=== PATIENT | female | born 1965 | race Hispanic/Latino ===

== ENCOUNTER 2024-12-10 18:26 | Inpatient (IN) | payer MEDICAID ==
[~2024-12-10] VITALS: Ht 170.2 cm; Wt 120.0 kg
[2024-12-10] MEDS: ZOSYN 3.375GM +NS 50ML IVPB SCH (06:00)
--- NOTE | 2024-12-10 20:20 | ERN ---
ED Note History of Present Illness Stated Complaint: SWOLLEN RIGHT FOOT Chief Complaint: FOOT INJURY/PAIN Time Seen by MD: 18:31 Time Seen by Midlevel: 18:31 Dictation: The patient is a 59-year-old female with a history of diabetes, hypertension, hyperlipidemia who presents to the emergency department with right foot swelling and redness onset Monday. Patient reports she was seen at [facility] on on Monday for UTI and was placed on Macrobid and then she was seen again on Monday four the foot and was diagnosed with Bactrim but reports redness and swelling is getting worse and is now going up her leg. Patient denies any fevers. Denies any injury to foot or any open wounds. Allergies: Coded Allergies: No Known Drug Allergies (Unverified Allergy, Unknown, 12/10/24) Past Medical History Past Medical History: Anxiety, Diabetes-Type II, GERD, High Cholesterol, Hypertension, Seizure Surgical History: Hysterectomy, Other Surgical History Other: TUBAL RN Note Reviewed/Agreed w/PFSH: Yes Review of System Dictation Constitutional: Negative for fever,chills, and weight loss Eyes: Negative for injury, pain,redness, and discharge ENT: Negative for injury,pain or swelling Cardiovascular: Negative for chest pain, palpitations, and edema Respiratory: Negative for shortness of breath, cough, and wheezing, Abdomen/GI: Negative for abdominal pain, nausea, vomiting, diarrhea, and constipation Back: Negative for injury and pain : Negative for injury, bleeding and discharge MS/Extremity: Negative for injury and deformity Skin: Negative for rash, and discoloration positive for redness and swelling to right foot Neuro: Negative for headache, weakness, numbness, tingling, and seizure Psych: Negative for suicide ideation, homicidal ideation, and hallucinations Initial Vital Sign VS Vital Signs Date Time Temp Pulse Resp B/P (MAP) Pulse Ox O2 Delivery O2 Flow Rate FiO2 12/10/24 18:54 99.7 94 20 151/81 96 Room Air 0 Physical Exam Dictation Vital Signs reviewed General Appearance: Alert, oriented x 3, no acute distress, well developed, nourished. Head and Face: non-traumatic. Eyes: PERRL, pink conjunctivas, eyelid no trauma, anterior chamber with arcus senilis. Ears: Pinnas intact and no signs of trauma or erythema ear canals clear and no discharge TM no erythema Nose: No discharge, no bleeding. Oropharynx: Mouth normal, tongue pink. pharynx clear,no erythema, tonsils no exudates, no abscesses noted, mucous membrane moist Neck: Supple, non-tender, no thyromegaly, no masses, no JVD, no bruits Breast:Deferred Chest:No tenderness, no crepitus, no paradoxical movement, no retractions Lungs:Clear, well-ventilated, symmetric, no rales, no wheezing, no rhonchi, no stridor, good breath sounds bilaterally Heart: Regular rate, regular rhythm, no murmur, no gallops Vascular: 2+ peripheral edema to right lower leg Abdomen: Soft, positive bowel sounds, nondistended, no guarding, nontender, no rebound, no masses no hepatomegaly, no splenomegaly, no Caballero's sign, no hernias. Rectal: Deferred Genital: Deferred Neurological: Normal speech, motor function intact, sensory function intact Musculoskeletal: Neck nontender, full range of motion, back nontender, full range of motion, Extremities: nontender, full range of motion , erythema and warmth noted to right foot, swelling, refused erythema noted to right upper leg Skin: Color pink, dry, no turgor, no rash, no lacerations, no abrasions, no contusions. Lymphatic: Deferred Results (Laboratory/Radiology) Laboratory/Radiology Laboratory Tests Test 12/10/24 21:01 White Blood Count 8.5 K/uL (4.8-10.8) Red Blood Count 4.12 MIL/uL (4.00-5.50) Hemoglobin 12.5 g/dL (12.0-16.0) Hematocrit 37.2 % (36-48) Mean Corpuscular Volume 90.3 fL (79-99) Mean Corpuscular Hemoglobin 30.3 pg (27.0-33.0) Mean Corpuscular Hemoglobin Concent 33.6 g/dL (32.0-36.0) Red Cell Distribution Width 12.6 % (11.0-15.5) Platelet Count 145 K/uL (130-400) Mean Platelet Volume 10.8 fL (7.5-10.5) H Immature Granulocyte % (Auto) 0.2 % (0-1) Neutrophils (%) (Auto) 66.9 % (40.0-77.0) Lymphocytes (%) (Auto) 24.6 % (21.0-51.0) Monocytes (%) (Auto) 7.1 % (3.0-13.0) Eosinophils (%) (Auto) 1.1 % (0.0-8.0) Basophils (%) (Auto) 0.1 % (0.0-5.0) Neutrophils # (Auto) 5.7 K/uL (1.8-7.7) Lymphocytes # (Auto) 2.1 K/uL (1.0-4.8) Monocytes # (Auto) 0.6 K/uL (0.1-1.0) Eosinophils # (Auto) 0.09 K/uL (0.00-0.70) Basophils # (Auto) 0.01 K/uL (0.00-0.20) Absolute Immature Granulocyte (auto 0.02 K/uL (0-1) Nucleated Red Blood Cells 0.0 % (0.0-0.19) Sodium Level 137 mmol/L (136-145) Potassium Level 3.8 mmol/L (3.5-5.1) Chloride Level 102 mmol/L (101-111) Carbon Dioxide Level 31 mmol/L (21-32) Blood Urea Nitrogen 8 mg/dL (7-18) Creatinine 0.7 mg/dL (0.5-1.0) Glomerular Filtration Rate Calc 100 mL/min (>90) Random Glucose 106 mg/dL (70-105) H Lactic Acid Level 1.1 mmol/L (0.8-2.5) Total Calcium 9.2 mg/dL (8.5-10.1) REASON: cellulitis ORDERING PHYSICIAN: RAKESH MCNEIL PROCEDURE: FT 3VW RT - FOOT COMP 3+VWS RT FOOT COMP 3+VWS RT CLINICAL HISTORY: cellulitis COMPARISON: None TECHNIQUE: AP lateral and oblique images were obtained. FINDINGS: No obvious fracture or dislocation. No joint effusion. The soft tissues appear edematous. No radiopaque foreign bodies. IMPRESSION: Soft tissue edema. Labs Reviewed?: Yes ED Course ED Course Orders Procedure Category Date Status Time Cbc With Differential LAB 12/10/24 Complete 19:05 Lactic Acid LAB 12/10/24 Complete 19:05 Basic Metabolic Panel LAB 12/10/24 Complete 19:05 Foot Comp 3+Vws Rt RAD 12/10/24 Resulted 19:05 Zosyn 3.375gm+Ns 50ml PHA 12/10/24 Complete (Zosyn 3.375gm+Ns 21:08 Vancomycin 1g/250ml PHA 12/10/24 In Process Kit (Vancomycin 1g/2 21:30 Current Medications Medications (Trade) Dose Ordered Sig/Eliel Route PRN Reason Start Time Stop Time Status Last Admin Dose Admin Piperacillin Sod/ Tazobactam Sod 50 ml @ 200 mls/hr STAT STAT IVPB 12/10/24 21:08 12/10/24 21:22 DC 12/10/24 21:49 Vancomycin HCl 250 ml @ 125 mls/hr ONCE ONCE IV 12/10/24 21:30 12/10/24 23:29 Vital Signs Date Time Temp Pulse Resp B/P (MAP) Pulse Ox O2 Delivery O2 Flow Rate FiO2 12/10/24 18:54 99.7 94 20 151/81 96 Room Air 0 Medical Decision Making MDM MDM: The patient is a 59-year-old female with a history of diabetes, hypertension, hyperlipidemia who presents to the emergency department with right foot swelling and redness onset Monday. Patient reports she was seen at [facility] on on Monday for UTI and was placed on Macrobid and then she was seen again on Monday four the foot and was diagnosed with Bactrim but reports redness and swelling is getting worse and is now going up her leg. Patient denies any fevers. Denies any injury to foot or any open wounds. CBC showed no leukocytosis, no anemia, chemistry showed no electrolyte imbalance, normal renal function, chest x-ray revealed soft tissue edema. Patient with worsening cellulitis now going up her right leg despite on being oral antibiotics. We will admit for further treatment. Differential diagnosis: Sepsis, cellulitis, osteomyelitis, Comorbidities: Diabetes, hypertension, hyperlipidemia, seizures Tests considered and not ordered secondary to shared decision making include: none Previous outside records reviewed: none Risk of complication and/or morbidity or mortality of patient management: The patient meets criteria for admission. Need for emergency major/minor surgery: No There are no social concerns with this patient. I independently interpreted the tests I ordered (labs, urinalysis, etc.). I discussed the case with the hospitalist for admission. conner STANLEY I discussed the case with the following specialists: none. Historian: pateint. I independently interpreted imaging studies and EKGs that I ordered (US, CT, XR, EKG, etc.). External chart review: none. Medical management and examination interpretation discussions were had by me with other qualified healthcare professionals as indicated for the patient's care. DX & DISP Disposition: Inpatient Decision to Admit Date: Dec 10, 2024 Decision to Admit Time: 21:52 Departure Impression: Primary Impression: Cellulitis of right foot Additional Impression: Cellulitis of right lower leg Condition: Stable Referrals: NOHEMY BAL MD (PCP) I have reviewed the case, and I agree with, Diagnosis and Plan RAKESH MCNEIL PROFESSOR OF BIOSTATISTICS Dec 10, 2024 20:20
--- NOTE | 2024-12-10 20:33 | HMCIMG ---
FOOT COMP 3+VWS RT CLINICAL HISTORY: cellulitis COMPARISON: None TECHNIQUE: AP lateral and oblique images were obtained. FINDINGS: No obvious fracture or dislocation. No joint effusion. The soft tissues appear edematous. No radiopaque foreign bodies. IMPRESSION: Soft tissue edema.
[2024-12-10 21:07] LABS: BASOPHILS # (AUTO) 0.01 K/uL (0.00-0.20); BASOPHILS % (AUTO) 0.1 % (0.0-5.0); EOSINOPHILS # (AUTO) 0.09 K/uL (0.00-0.70); EOSINOPHILS % (AUTO) 1.1 % (0.0-8.0); HEMATOCRIT 37.2 % (36-48); IMMATURE GRANULOCYTE ABSOLUTE 0.02 K/uL (0-1); LYMPHOCYTES # (AUTO) 2.1 K/uL (1.0-4.8); LYMPHOCYTES % (AUTO) 24.6 % (21.0-51.0); MEAN CORPUSCULAR HEMOGLOBIN 30.3 pg (27.0-33.0); MEAN CORPUSCULAR HGB CONC 33.6 g/dL (32.0-36.0); MEAN CORPUSCULAR VOLUME 90.3 fL (79-99); MONOCYTES # (AUTO) 0.6 K/uL (0.1-1.0); MONOCYTES % (AUTO) 7.1 % (3.0-13.0); NEUTROPHILS # (AUTO) 5.7 K/uL (1.8-7.7); NEUTROPHILS % (AUTO) 66.9 % (40.0-77.0); PLATELET COUNT (AUTO) 145 K/uL (130-400); RED BLOOD CELL COUNT(AUTO) 4.12 MIL/uL (4.00-5.50); RED CELL DISTRIBUTION WIDTH 12.6 % (11.0-15.5); WHITE BLOOD COUNT (AUTO) 8.5 K/uL (4.8-10.8)
[2024-12-10 21:17] LABS: CREATININE 0.7 mg/dL (0.5-1.0); POTASSIUM 3.8 mmol/L (3.5-5.1)
[2024-12-10] MEDS: ZOSYN 3.375GM+NS 50ML 50 ML IVPB STA (21:49)
--- NOTE | 2024-12-10 22:29 | HP ---
[facility] Date of Service: Dec 10, 2024 Time of Service: 22:29 PCP: Benton Goodman HISTORY OF PRESENT ILLNESS: This is a 59-year-old female a reliable historian with past medical history of diabetes, hypertension hyperlipidemia and right foot cellulitis who presents to the ED for complaints of right foot swelling and redness which started last Monday and patient states she went to [facility] and was diagnosed for UTI and was started on Macrobid and then was discharged home. Patient states they did not bother to look at her right foot reason for her visit she said so Monday she went to [facility] again for her worsening right foot swellingthat is going up to her right leg and she was started on Bactrim and was sent home.Patient states she had a similar problem in the past ,she has cellulitis on the same foot.Patient states today she has difficulty walking and pain intensity has increased and she noticed there is a blister so she decided to come to this facility. Seen and examined patient in the ER awake,alert and coherent,continue to complain of 8/10 pain level. Patient denies fever, nausea, vomiting, cough, chest pain, palpitation and shortness of breath. Vital signs temperature 98.6, heart rate 87, blood pressure 134/69 saturation 99% on room air. Labs: CBC unremarkable. Glucose 106 the rest of the chemistries normal. Right foot x-ray result revealed soft tissue edema. While in the ER patient was started on vancomycin and IV Zosyn. We will admit patient for further medical management. REVIEW OF SYSTEMS CONSTITUTIONAL: Denies fevers, chills, or night sweats. No unintentional weight loss reported. NEUROLOGICAL: Denies headache, amaurosis fugax, motor weakness, sensory deficit, vertigo/spinning sensation, gait abnormalities, or tremors. ENT: No hearing loss, otalgia, otorrhea, rhinitis, rhinorrhea, hoarseness, or sore throat. CARDIOVASCULAR: Denies any exertional angina, dyspnea on exertion, orthopnea, paroxysmal nocturnal dyspnea, palpitations, life-threatening arrhythmias, claudication. PULMONARY: Denies any shortness of breath, cough, phlegm/sputum, hemoptysis, pleuritic chest pain. SLEEP: Denies morning headaches, daytime somnolence or napping. Denies difficulty falling asleep, staying asleep, waking from sleep. Denies knowledge of snoring. GASTROINTESTINAL: Denies any type of dysphagia to either liquids or solids. Denies nausea, vomiting, pyrosis, early satiety, abdominal pain, diarrhea, constipation, or changes in stool consistency or caliber. Denies coffee-ground emesis, hematemesis, hematochezia, or melanotic stools. GENITOURINARY: Denies frequency, urgency, nocturia, hematuria or incontinence (Storage/Irritative symptoms.) Low urinary stream, straining to void, urinary intermittency or hesitancy, splitting of the voiding stream, terminal dribbling. ENDOCRINOLOGIC: Denies polyuria, polydipsia, polyphagia or heat/cold intolerances. HEMATOLOGIC: Denies thrombophilia/previous clots, or coagulopathy/bleeding disorders. ONCOLOGIC: Denies personal history of malignancy. DERMATOLOGIC: Right foot redness up to right leg with swelling and close blister PSYCHIATRIC: Denies any suicidal or homicidal ideation. Denies hallucinations. PAST MEDICAL HISTORY: [ Diabetes, hypertension, hyperlipidemia, anxiety disorder, seizure disorder, right foot cellulitis ] PAST SURGICAL HISTORY: [ Hysterectomy, tubal ligation, bilateral breast biopsy ] PAST SOCIAL HISTORY: [ Patient lives alone. Patient denies alcohol tobacco and recreational drug use] FAMILY HISTORY: [ Noncontributory ] Coded Allergies: No Known Drug Allergies (Unverified Allergy, Unknown, 12/10/24) PHYSICAL EXAM GENERAL APPEARANCE: The patient is awake, alert, and oriented, in no acute cardiopulmonary distress. NEUROLOGICAL: Cranial nerves II-XII grossly intact. Motor is 5/5 in bilateral upper and lower extremities proximal to distal. No sensory deficits. HEENT: Face is symmetric. Pupils are equal and reactive. Extraocular movements are intact. NECK: Supple. No JVD. No thyromegaly. No submental, submandibular, pre- /postauricular, occipital or supraclavicular lymphadenopathy. CHEST: Normal chest expansion. No Telemetry. LUNGS: Absence of any rales, rhonchi or any wheezing. CARDIOVASCULAR: Regular. S1 and S2 normal. No appreciable rubs, murmurs or gallops. ABDOMEN: Soft, nontender, and nondistended. There is no rebound, voluntary guarding, or rigidity. : Deferred. No Smiley. EXTREMITIES: Right foot swollen up to her right lower leg with erythema and close blister on the right foot No clubbing. Good capillary refill. SKIN: No skin breakdown. Vital Sign (Last 24 Hours) 12/10/24 22:02 Temp 98.6 Pulse 87 Resp 18 B/P (MAP) 134/69 Pulse Ox 99 O2 Delivery Room Air* O2 Flow Rate 0 FiO2 21 LABS: Laboratory: Test 12/10/24 21:01 Range/Units White Blood Count 8.5 4.8-10.8 K/uL Red Blood Count 4.12 4.00-5.50 MIL/uL Hemoglobin 12.5 12.0-16.0 g/dL Hematocrit 37.2 36-48 % Mean Corpuscular Volume 90.3 79-99 fL Mean Corpuscular Hemoglobin 30.3 27.0-33.0 pg Mean Corpuscular Hemoglobin Concent 33.6 32.0-36.0 g/dL Red Cell Distribution Width 12.6 11.0-15.5 % Platelet Count 145 130-400 K/uL Mean Platelet Volume 10.8 H 7.5-10.5 fL Immature Granulocyte % (Auto) 0.2 0-1 % Neutrophils (%) (Auto) 66.9 40.0-77.0 % Lymphocytes (%) (Auto) 24.6 21.0-51.0 % Monocytes (%) (Auto) 7.1 3.0-13.0 % Eosinophils (%) (Auto) 1.1 0.0-8.0 % Basophils (%) (Auto) 0.1 0.0-5.0 % Neutrophils # (Auto) 5.7 1.8-7.7 K/uL Lymphocytes # (Auto) 2.1 1.0-4.8 K/uL Monocytes # (Auto) 0.6 0.1-1.0 K/uL Eosinophils # (Auto) 0.09 0.00-0.70 K/uL Basophils # (Auto) 0.01 0.00-0.20 K/uL Absolute Immature Granulocyte (auto 0.02 0-1 K/uL Nucleated Red Blood Cells 0.0 0.0-0.19 % Sodium Level 137 136-145 mmol/L Potassium Level 3.8 3.5-5.1 mmol/L Chloride Level 102 101-111 mmol/L Carbon Dioxide Level 31 21-32 mmol/L Blood Urea Nitrogen 8 7-18 mg/dL Creatinine 0.7 0.5-1.0 mg/dL Glomerular Filtration Rate Calc 100 >90 mL/min Random Glucose 106 H 70-105 mg/dL Lactic Acid Level 1.1 0.8-2.5 mmol/L Total Calcium 9.2 8.5-10.1 mg/dL Current Medications Medications (Trade) Dose Ordered Sig/Eliel Route PRN Reason Start Time Stop Time Status Last Admin Dose Admin Piperacillin Sod/ Tazobactam Sod 50 ml @ 200 mls/hr STAT STAT IVPB 12/10/24 21:08 12/10/24 21:22 DC 12/10/24 21:49 200 MLS/HR DIAGNOSTICS / RADIOLOGY: [ ] ASSESSMENT: Right foot cellulitis POA Hypertension POA Diabetes POA Hyperlipidemia POA Anxiety disorder POA Seizure disorder POA Morbid obesity POA History of right foot cellulitis POA PLAN: We will admit patient in medical surgical We will start on heart healthy and consistent carb diet We will continue Zosyn IV and vancomycin IV We will start patient on Lovenox 40 mg subQ daily for DVT prophylaxis We will start on Famotidine 20 mg p.o. bid for GI prophylaxis We will replace electrolytes as needed per protocol We will start on insulin sliding scale AC & HS with hypoglycemia protocol We will add prn medication for fever,pain, nausea and vomiting We will reconcile home meds once medlist available We will request for venous Doppler on right lower extremity We will seek Infectious Disease consultation We will request labs in am Further orders to follow depending on above results Case discussed with attending physician and came up with above treatment and plan of care. ADVANCED CARE PLANNING 1. Which of the following were discussed? Hospice Care - No Therapeutic options - Yes Advance Directives - No Other discussions - 2. Discussed with who? Patient 3. Voluntary nature of this service was explained to the patient? Yes 4. Amount of time spent - __23 5. Reviewed by Physician? (if this service was performed by NPP) Yes Patient seen and examined by me. Agree with note by DIRECTOR OF RESEARCH SEE ADDITIONAL ORDERS PER CHART DISCUSSED WITH NURSING STAFF ZARIA NEVILLEP Dec 10, 2024 22:29
[2024-12-10] MEDS ORDERED: ondanSETRON 4MG INJ IV PRN (22:30)
[2024-12-10] MEDS ORDERED: VANCOMYCIN KIT 1 GM/250 ML IV.KIT IV SCH (22:30)
[2024-12-10] MEDS ORDERED: PoTASSium chl 10% ELIXIR 20MEQ 20 MEQ/15 ML UDCUP PO PRN (22:30)
[2024-12-10] MEDS ORDERED: acetaMINOPHEN 325 MG TAB PO PRN ×2 (22:30)
[2024-12-10] MEDS ORDERED: PoTASSium chloRIDE 20MEQ/100ML 100 ML IV PRN (22:30)
[2024-12-10] MEDS ORDERED: PoTASSium chloRIDE 20MEQ ER 20 MEQ ERTAB PO PRN (22:30)
[2024-12-10] MEDS ORDERED: DEXTROSE 50%-WATER 50 ML DISP.SYRIN IV PRN (22:30)
[2024-12-10] MEDS ORDERED: GLUCAGON 1MG KIT 1 MG ML IM PRN (22:30)
[2024-12-10] MEDS: VANCOMYCIN 1G/250ML KIT 250 ML IV ONE (22:41)
[2024-12-10] MEDS ORDERED: VANCOMYCIN PROTOCOL PER PHARMACY IV SCH (23:00)
[2024-12-11] MEDS: ZOSYN 3.375GM +NS 50ML IVPB SCH (06:00)
[2024-12-11 06:03] LABS: BASOPHILS # (AUTO) 0.02 K/uL (0.00-0.20); BASOPHILS % (AUTO) 0.2 % (0.0-5.0); EOSINOPHILS # (AUTO) 0.09 K/uL (0.00-0.70); HEMATOCRIT 36.9 % (36-48); IMMATURE GRANULOCYTE ABSOLUTE 0.02 K/uL (0-1); MEAN CORPUSCULAR HEMOGLOBIN 30.4 pg (27.0-33.0); MEAN CORPUSCULAR HGB CONC 33.3 g/dL (32.0-36.0); MEAN CORPUSCULAR VOLUME 91.1 fL (79-99); MONOCYTES # (AUTO) 0.7 K/uL (0.1-1.0); MONOCYTES % (AUTO) 7.3 % (3.0-13.0); NEUTROPHILS # (AUTO) 6.3 K/uL (1.8-7.7); NEUTROPHILS % (AUTO) 69.3 % (40.0-77.0); PLATELET COUNT (AUTO) 156 K/uL (130-400); RED BLOOD CELL COUNT(AUTO) 4.05 MIL/uL (4.00-5.50); RED CELL DISTRIBUTION WIDTH 12.7 % (11.0-15.5); WHITE BLOOD COUNT (AUTO) 9.1 K/uL (4.8-10.8)
[2024-12-11 06:16] LABS: ALBUMIN 3.1 g/dL (3.5-5.0); BILIRUBIN,TOTAL 0.4 mg/dL (0.2-1.0); CREATININE 0.7 mg/dL (0.5-1.0); MAGNESIUM 1.8 mg/dL (1.80-2.40); POTASSIUM 4.2 mmol/L (3.5-5.1); TOTAL PROTEIN, SERUM 7.2 g/dL (6.0-8.3)
[2024-12-11 07:06] LABS: ERYTHROCYTE SEDIMENTATION RATE 95 MM/HR (0-30)
[2024-12-11] MEDS: INSULIN humuLIN R 100 UNIT/ML 3ML SQ SCH (07:30)
[2024-12-11] MEDS ORDERED: VANCOMYCIN 1.5 GM/250 ML BAG 250 ML IV SCH (09:00)
--- NOTE | 2024-12-11 10:02 | HMCIMG ---
US VENOUS DOPPLER UNILATERAL HISTORY: Right lower extremity swelling COMPARISON: None TECHNIQUE: Right lower extremity venous Doppler ultrasound study was performed. FINDINGS: The right common femoral, femoral, popliteal, and posterior tibial veins are visualized. Normal flow with augmentation and compressibilities are demonstrated. Right greater saphenous vein is patent. IMPRESSION: 1. No evidence of deep venous thrombosis is seen.
[2024-12-11] MEDS: FAMOTIDINE 20MG TAB PO SCH (10:56)
[2024-12-11] MEDS: ENOXAPARIN SODIUM 40 MG/0.4 ML SYRINGE SQ SCH (10:57)
[2024-12-11] MEDS ORDERED: COMPOUND IV REFRIGERATED 1 EACH IVSOLN MISC PRN (11:00)
[2024-12-11] MEDS ORDERED: SIMV10TA97 PO (11:05)
[2024-12-11] MEDS ORDERED: METF-444 PO (11:05)
[2024-12-11] MEDS ORDERED: CLON1TAB12 PO (11:05)
[2024-12-11] MEDS ORDERED: LISI2.5T13 PO (11:05)
[2024-12-11] MEDS: MAGNESIUM 2GM PREMIX 50ML 50 ML IV PRN (11:36)
[2024-12-11] MEDS: VANCOMYCIN 1.5 GM/250 ML BAG 250 ML IV SCH (11:40)
[2024-12-11] MEDS ORDERED: LACTULOSE 20 GM/30 ML UDCUP PO PRN (13:00)
--- NOTE | 2024-12-11 13:00 | PN ---
[facility] PROGRESS NOTE Date of Service: Dec 11, 2024 Time of Service: 12:50 SUBJECTIVE: [ ] This is a 59-year-old female was admitted on 12/10/2024 with chief complaints of right foot swelling and redness. Patient was admitted for for cellulitis. ID we will be following for antibiotic stewardship. Patient reports pain has improved since admission continues with redness and blisters. We will wait for cultures. REVIEW OF SYSTEMS CONSTITUTIONAL: Denies fevers, chills, or night sweats. No unintentional weight loss reported. NEUROLOGICAL: Denies headache, amaurosis fugax, motor weakness, sensory deficit, vertigo/spinning sensation, gait abnormalities, or tremors. ENT: No hearing loss, otalgia, otorrhea, rhinitis, rhinorrhea, hoarseness, or sore throat. CARDIOVASCULAR: Denies any exertional angina, dyspnea on exertion, orthopnea, paroxysmal nocturnal dyspnea, palpitations, life-threatening arrhythmias, claudication. PULMONARY: Denies any shortness of breath, cough, phlegm/sputum, hemoptysis, pleuritic chest pain. SLEEP: Denies morning headaches, daytime somnolence or napping. Denies difficulty falling asleep, staying asleep, waking from sleep. Denies knowledge of snoring. GASTROINTESTINAL: Denies any type of dysphagia to either liquids or solids. Denies nausea, vomiting, pyrosis, early satiety, abdominal pain, diarrhea, constipation, or changes in stool consistency or caliber. Denies coffee-ground emesis, hematemesis, hematochezia, or melanotic stools. GENITOURINARY: Denies frequency, urgency, nocturia, hematuria or incontinence ( Storage/Irritative symptoms.) Low urinary stream, straining to void, urinary intermittency or hesitancy, splitting of the voiding stream, terminal dribbling. ENDOCRINOLOGIC: Denies polyuria, polydipsia, polyphagia or heat/cold intolerances. HEMATOLOGIC: Denies thrombophilia/previous clots, or coagulopathy/bleeding disorders. ONCOLOGIC: Denies personal history of malignancy. DERMATOLOGIC: Right foot redness up to right leg with swelling and close blister PSYCHIATRIC: Denies any suicidal or homicidal ideation. Denies hallucinations. PHYSICAL EXAM GENERAL APPEARANCE: The patient is awake, alert, and oriented, in no acute cardiopulmonary distress. NEUROLOGICAL: Cranial nerves II-XII grossly intact. Motor is 5/5 in bilateral upper and lower extremities proximal to distal. No sensory deficits. HEENT: Face is symmetric. Pupils are equal and reactive. Extraocular movements are intact. NECK: Supple. No JVD. No thyromegaly. No submental, submandibular, pre- /postauricular, occipital or supraclavicular lymphadenopathy. CHEST: Normal chest expansion. No Telemetry. LUNGS: Absence of any rales, rhonchi or any wheezing. CARDIOVASCULAR: Regular. S1 and S2 normal. No appreciable rubs, murmurs or gallops. ABDOMEN: Soft, nontender, and nondistended. There is no rebound, voluntary guarding, or rigidity. : Deferred. No Smiley. EXTREMITIES: Right foot swollen up to her right lower leg with erythema and close blister on the right foot No clubbing. Good capillary refill. SKIN: No skin breakdown. Vital Signs (last 8hr) Date Time Temp Pulse Resp B/P (MAP) Pulse Ox O2 Delivery O2 Flow Rate FiO2 12/11/24 08:14 98.8 83 18 117/66 96 Room Air* 0 21 12/11/24 06:52 98.8 84 20 142/63 97 Room Air* 0 21 LABS: Laboratory: Test 12/11/24 11:26 12/11/24 05:53 12/10/24 21:01 Range/Units Whole Blood Glucose 119 H 70-110 MG/DL White Blood Count 9.1 4.8-10.8 K/uL Red Blood Count 4.05 4.00-5.50 MIL/uL Hemoglobin 12.3 12.0-16.0 g/dL Hematocrit 36.9 36-48 % Mean Corpuscular Volume 91.1 79-99 fL Mean Corpuscular Hemoglobin 30.4 27.0-33.0 pg Mean Corpuscular Hemoglobin Concent 33.3 32.0-36.0 g/dL Red Cell Distribution Width 12.7 11.0-15.5 % Platelet Count 156 130-400 K/uL Mean Platelet Volume 10.9 H 7.5-10.5 fL Immature Granulocyte % (Auto) 0.2 0-1 % Neutrophils (%) (Auto) 69.3 40.0-77.0 % Lymphocytes (%) (Auto) 22.0 21.0-51.0 % Monocytes (%) (Auto) 7.3 3.0-13.0 % Eosinophils (%) (Auto) 1.0 0.0-8.0 % Basophils (%) (Auto) 0.2 0.0-5.0 % Neutrophils # (Auto) 6.3 1.8-7.7 K/uL Lymphocytes # (Auto) 2.0 1.0-4.8 K/uL Monocytes # (Auto) 0.7 0.1-1.0 K/uL Eosinophils # (Auto) 0.09 0.00-0.70 K/uL Basophils # (Auto) 0.02 0.00-0.20 K/uL Absolute Immature Granulocyte (auto 0.02 0-1 K/uL Nucleated Red Blood Cells 0.0 0.0-0.19 % Erythrocyte Sedimentation Rate 95 H 0-30 MM/HR Sodium Level 139 136-145 mmol/L Potassium Level 4.2 3.5-5.1 mmol/L Chloride Level 104 101-111 mmol/L Carbon Dioxide Level 30 21-32 mmol/L Blood Urea Nitrogen 7 7-18 mg/dL Creatinine 0.7 0.5-1.0 mg/dL Glomerular Filtration Rate Calc 100 >90 mL/min Random Glucose 119 H 70-105 mg/dL Total Calcium 8.7 8.5-10.1 mg/dL Magnesium Level 1.80 1.80-2.40 mg/dL Total Bilirubin 0.4 0.2-1.0 mg/dL Aspartate Amino Transf (AST/SGOT) 28 10-37 U/L Alanine Aminotransferase (ALT/SGPT) 42 12-78 U/L Alkaline Phosphatase 53 50-136 U/L Total Protein 7.2 6.0-8.3 g/dL Albumin 3.1 L 3.5-5.0 g/dL Lactic Acid Level 1.1 0.8-2.5 mmol/L Current Medications Medications (Trade) Dose Ordered Sig/Eliel Route PRN Reason Start Time Stop Time Status Last Admin Dose Admin Acetaminophen (TYLenol 325MG TAB) 650 mg Q4H PRN PO MILD PAIN (1-3) 12/10/24 22:30 01/09/25 22:29 Acetaminophen (TYLenol 325MG TAB) 650 mg Q6H PRN PO TEMPERATURE GREATER THAN 101.5 12/10/24 22:30 01/09/25 22:29 Dextrose (D50w) 50 ml AD PRN IV HYPOGLYCEMIA PROTOCOL 12/10/24 22:30 01/09/25 22:29 Enoxaparin Sodium (Lovenox) 40 mg DAILY SQ 12/11/24 09:00 01/10/25 08:59 12/11/24 10:57 40 MG Famotidine (Pepcid 20mg Tab) 20 mg BID PO 12/11/24 09:00 01/10/25 08:59 12/11/24 10:56 20 MG Glucagon (Glucagon 1mg Kit) 1 mg AD PRN IM HYPOGLYCEMIA PROTOCOL 12/10/24 22:30 01/09/25 22:29 Insulin Human Regular (humuLIN R 100 UNIT/ML 3ML) INSULIN SLIDING SCAL... ACHS SQ 12/11/24 07:30 01/10/25 07:29 Magnesium Sulfate 50 ml @ 0 mls/hr PROTOCOL PRN IV OTHER [SEE ORDER COMMENTS] 12/10/24 22:30 01/09/25 22:29 12/11/24 11:36 50 MLS/HR Ondansetron HCl (zoFRAN 4MG INJ) 4 mg Q6H PRN IV NAUSEA/VOMITING 12/10/24 22:30 01/09/25 22:29 Piperacillin Sod/ Tazobactam Sod 50 ml @ 200 mls/hr STAT STAT IVPB 12/10/24 21:08 12/10/24 21:22 DC 12/10/24 21:49 200 MLS/HR Piperacillin Sod/ Tazobactam Sod (Zosyn 3.375gm+NS 50ml) 3.375 gm Q8H IVPB 12/10/24 06:00 12/11/24 00:58 DC Piperacillin Sod/ Tazobactam Sod (Zosyn 3.375gm+NS 50ml) 3.375 gm Q8H IVPB 12/11/24 06:00 12/21/24 05:59 12/11/24 06:00 3.375 GM Potassium Chloride 100 ml @ 100 mls/hr AD PRN IV POTASSIUM PROTOCOL 12/10/24 22:30 01/09/25 22:29 Potassium Chloride (K-Dur/Klor-Con 20meq) 20 meq AD PRN PO POTASSIUM PROTOCOL 12/10/24 22:30 01/09/25 22:29 Potassium Chloride (KCl 10% Elixir 20meq/15ml) 20 meq AD PRN PO POTASSIUM PROTOCOL 12/10/24 22:30 01/09/25 22:29 Tramadol HCl (UltRAM) 50 mg Q6H PRN PO MODERATE PAIN (4-6) 12/10/24 22:30 12/15/24 22:29 Vancomycin HCl 250 ml @ 125 mls/hr Q12H IV 12/11/24 09:00 12/11/24 11:37 DC Vancomycin HCl 250 ml @ 125 mls/hr Q12H IV 12/11/24 12:00 12/21/24 11:59 12/11/24 11:40 125 MLS/HR Vancomycin HCl (Vancomycin Protocol) 1 each AD IV 12/10/24 23:00 12/24/24 22:59 Vancomycin HCl (Vancomycin 1g/ 250ml Kit) 1 gm Q12H IV 12/10/24 22:30 12/10/24 22:36 DC DIAGNOSTICS / RADIOLOGY: [ ] ASSESSMENT: Right foot cellulitis POA Hypertension POA Diabetes type II POA Hyperlipidemia POA Anxiety disorder POA Seizure disorder POA Morbid obesity POA History of right foot cellulitis POA PLAN: Admit: Remains in ED holding transitioned to medical floor condition: Guarded Status: Full IVF: NS at 75ml hr Consultants infectious disease for antibiotic stewardship Antibiotics: Vancomycin if Zosyn IV. Pending blood cultures Test: Reviewed Doppler imaging DVT was ruled out Labs cbc, cmp, mag+ Replace electrolytes as needed as per protocol to keep potassium above 4.0 magnesium 2.0. Home medication reviewed and reconciled weight management discussed: risk factors diet and exercising Wound care: elevated lower ext. offloading. PRN: MEDICATIONS Tylenol 650 mg po every 4 hrs for fever Zofran 4 mg IV every 6 hrs for n/v Hydralazine 5 mg IV every 4 hrs systolic pressure > 160 bowel regiment: lactulose 20 gm PO BID PRN constipation and daily Colace 100 mg daily Pain management: Ultram every 6 hours Supportive measures: DVT ppx, GI ppx all questions answered Supervising MD: Dr. Barrios c/timmy This document was generated in part using voice recognition software, occasional wrong word or sound alike substitutions may have occurred due to the inherent limitations of voice recognition software. Read the chart carefully and recognize using context, where the substitutions have occurred. Although every effort was made to edit the content, coiler and typing errors may occur ATTESTATION BY PHYSICIAN I have seen and examined the patient. I reviewed the documentation, medical decision making, and treatment plan as noted by the mid-level provider above. I agree with the findings and plan of care. OKSANA BARRIOS MD, ELIZABETH NP Dec 11, 2024 13:00
--- NOTE | 2024-12-11 15:27 | NUR ---
[facility] Consult: Patient assessed by wound healing team. Patient with no open wounds, cellulitis to right foot. Assessment and recommendations provided to primary nurse. Education provided. Addendum: 12/11/24 at 1632 by CRISTAL ISABEL RN RN/ Amended: Links added.
[2024-12-11] MEDS: ceFEPime HCL 1 GM VIAL IVPB SCH (16:16)
--- NOTE | 2024-12-11 19:28 | NUR ---
TOOK OVER PATIENT AT THIS TIME
[2024-12-11 20:45] VITALS: BP 110/70; PULSE 86; RESP 20; TEMP 98.6
[2024-12-11 21:15] VITALS: O2SAT 97
--- NOTE | 2024-12-11 21:23 | CONS ---
INFECTIOUS DISEASE CONSULTATION DATE OF SERVICE: 12/11/2024 REQUESTING PHYSICIAN: Geovanna Pickens NP. REASON FOR CONSULTATION: Right foot cellulitis and antibiotic management. HISTORY OF PRESENT ILLNESS: This is A 59-year-old female with history of morbid obesity, hypertension, diabetes mellitus, presented to the hospital with right foot pain, swelling and redness. The patient denies sharp trauma or fall. The patient's swelling has been going on for few weeks. Has some low-grade fever. T-max in Emergency Room was 99.6. Venous Doppler came back negative. X-ray of the right foot shows soft tissue swelling. No nausea or vomiting. The patient was started on vancomycin and Zosyn. PAST MEDICAL HISTORY: * Diabetes mellitus. * Hypertension. * Obesity. * Dyslipidemia. * Anxiety disorder. * Seizure disorder. * Right foot cellulitis. PAST SURGICAL HISTORY: * Hysterectomy. * Tubal ligation. * Bilateral breast biopsy. ALLERGIES: No known drug allergy. CURRENT MEDICATIONS: Reviewed, include: * Vancomycin. * Zosyn. * Insulin. * Tylenol. * Sulfa. SOCIAL HISTORY: Denies alcohol, tobacco or illicit drug use. FAMILY HISTORY: Positive for diabetes mellitus. REVIEW OF SYSTEMS: Greater than 10 systems were reviewed, negatives as documented above. PHYSICAL EXAMINATION: GENERAL: A middle-aged female, awake. VITAL SIGNS: Temperature 98.8, pulse 83, respiratory rate 18, BP 117/66. EYES: No icterus. Pupils equal and reactive. HENT: No oral thrush seen. Moist oral mucosa. NECK: Supple, no JVD or thyromegaly. LUNGS: Good air entry. No rales, no rhonchi. CARDIOVASCULAR: S1, S2 regular. No murmur heard. ABDOMEN: Obese, soft, nontender. Bowel sounds present. CENTRAL NERVOUS SYSTEM: Awake, alert, oriented x 3. No focal deficits. SKIN: No rashes, no itchiness. LYMPHATIC: No peripheral lymphadenopathy. BACK: No deformity. No pressure ulcer. MUSCULOSKELETAL: No joint swelling, erythema or tenderness. LABORATORY DATA: Sodium 139, potassium 4.2, BUN 7, creatinine 0.7. WBC 9.2, hemoglobin 4.3, platelet 156. RADIOLOGY: Venous Doppler is negative. Right foot x-ray shows soft tissue swelling. ASSESSMENT: A 59-year-old female presenting with fever, right foot pain. Current problems include: * Right foot cellulitis. * Diabetes mellitus. * Morbid obesity. * Hypertension. PLAN: * Continue vancomycin. * Discontinue Zosyn. * Start the patient on cefepime. * Continue pain management. * Keep leg elevated. * Continue antihypertensive. * Continue antidiabetic. * Monitor electrolytes and correct as needed. TID: [id number] RECEIPT: [id number]
[2024-12-11] MEDS: simVASTatin 10 MG TABLET PO SCH (21:25)
[2024-12-11] MEDS: traMADol HCL 50 MG TABLET PO PRN (21:25)
[2024-12-12] VITALS (7 sets, daily range): BP systolic 103–124; BP diastolic 45–71; PULSE 80–95; RESP 18–20; TEMP 98.3–99; O2SAT 94–98
[2024-12-12] MEDS: doCUSate SODIUM 100 MG CAP PO SCH (08:26)
[2024-12-12] MEDS: LISINOPRIL 2.5 MG TABLET PO SCH (08:27)
[2024-12-12] MEDS: clonazePAM 1MG TAB PO SCH (09:26)
--- NOTE | 2024-12-12 11:58 | PN ---
INFECTIOUS DISEASE PROGRESS NOTE Date of Service: Dec 12, 2024 SUBJECTIVE: This is a 59-year-old female patient with past medical history of diabetes mellitus and right foot cellulitis who presented to the emergency room with chief complaints of right foot swelling and redness. Patient had a low-grade fever of 99.7. A venous Doppler done on admission was negative for DVT and a foot x-ray was negative for fracture but showed soft tissue edema. Patient was seen and examined at bedside in room 320. Patient is awake, alert and oriented x3. The right foot is swollen with some erythema. Tender on palpation. Encouraged patient to keep right leg elevated on pillow and avoid using socks on the right foot. Patient is afebrile this morning, temperature is 98.2. No episodes of emesis reported. Patient will continue on cefepime and vancomycin per pharmacy protocol. We will continue to follow patient's care. PHYSICAL EXAM EYES: Anicteric. Pupils equal and reactive. HENT: No oral thrush seen, moist Oral mucosa. NECK: Supple, no JVD or thyromegaly. LUNGS: Good air entry. No rales, no rhonchi. CARDIOVASCULAR: S1, S2 regular. No murmur heard. ABDOMEN: Soft, non tender, bowel sounds present, no organomegaly. CENTRAL NERVOUS SYSTEM: Awake, alert, oriented x 3. SKIN: No rashes, no swelling. LYMPHATICS: No peripheral lymphadenopathy MUSCULOSKELETAL: No joint swelling, erythema or tenderness. EXTREMITIES: No cyanosis or clubbing. Right foot swelling and erythema. BACK: No deformity, no pressure ulcer. GENITOURINARY: No dysuria or hematuria. Vital Sign (Last 12 Hours) 12/12/24 12/12/24 12/12/24 12/12/24 00:00 04:00 08:00 08:10 Temp 98.4 98.6 98.2 Pulse 95 80 88 Resp 18 18 18 B/P (MAP) 109/45 124/66 107/71 Pulse Ox 93 98 94 94 O2 Delivery Room Air Room Air Room Air Room Air* O2 Flow Rate 0 FiO2 21 LABS: Laboratory: Test 12/12/24 11:10 12/12/24 05:33 12/11/24 05:53 12/10/24 21:01 Range/Units Vancomycin Level Trough 10.9 10.0-20.0 UG/ML Whole Blood Glucose 112 H 70-110 MG/DL White Blood Count 9.1 4.8-10.8 K/uL Red Blood Count 4.05 4.00-5.50 MIL/uL Hemoglobin 12.3 12.0-16.0 g/dL Hematocrit 36.9 36-48 % Mean Corpuscular Volume 91.1 79-99 fL Mean Corpuscular Hemoglobin 30.4 27.0-33.0 pg Mean Corpuscular Hemoglobin Concent 33.3 32.0-36.0 g/dL Red Cell Distribution Width 12.7 11.0-15.5 % Platelet Count 156 130-400 K/uL Mean Platelet Volume 10.9 H 7.5-10.5 fL Immature Granulocyte % (Auto) 0.2 0-1 % Neutrophils (%) (Auto) 69.3 40.0-77.0 % Lymphocytes (%) (Auto) 22.0 21.0-51.0 % Monocytes (%) (Auto) 7.3 3.0-13.0 % Eosinophils (%) (Auto) 1.0 0.0-8.0 % Basophils (%) (Auto) 0.2 0.0-5.0 % Neutrophils # (Auto) 6.3 1.8-7.7 K/uL Lymphocytes # (Auto) 2.0 1.0-4.8 K/uL Monocytes # (Auto) 0.7 0.1-1.0 K/uL Eosinophils # (Auto) 0.09 0.00-0.70 K/uL Basophils # (Auto) 0.02 0.00-0.20 K/uL Absolute Immature Granulocyte (auto 0.02 0-1 K/uL Nucleated Red Blood Cells 0.0 0.0-0.19 % Erythrocyte Sedimentation Rate 95 H 0-30 MM/HR Sodium Level 139 136-145 mmol/L Potassium Level 4.2 3.5-5.1 mmol/L Chloride Level 104 101-111 mmol/L Carbon Dioxide Level 30 21-32 mmol/L Blood Urea Nitrogen 7 7-18 mg/dL Creatinine 0.7 0.5-1.0 mg/dL Glomerular Filtration Rate Calc 100 >90 mL/min Random Glucose 119 H 70-105 mg/dL Total Calcium 8.7 8.5-10.1 mg/dL Magnesium Level 1.80 1.80-2.40 mg/dL Total Bilirubin 0.4 0.2-1.0 mg/dL Aspartate Amino Transf (AST/SGOT) 28 10-37 U/L Alanine Aminotransferase (ALT/SGPT) 42 12-78 U/L Alkaline Phosphatase 53 50-136 U/L Total Protein 7.2 6.0-8.3 g/dL Albumin 3.1 L 3.5-5.0 g/dL Lactic Acid Level 1.1 0.8-2.5 mmol/L ASSESSMENT: Right foot edema with cellulitis. Diabetes mellitus. Morbid obesity. Hypertension. History of seizure disorders. PLAN: Continue vancomycin per pharmacy protocol. Continue cefepime IV. Continue pain management. Continue monitoring glucose levels. Keep right leg elevated on pillow. Avoid using socks on the right foot. Seizure precautions. This case was reviewed and discussed with my supervising physician and the above assessment and plan was formulated and agreed upon. ATTESTATION BY PHYSICIAN I have seen and examined the patient. I reviewed the documentation, medical d ecision making, and treatment plan as noted by the mid-level provider above. I agree with the findings and plan of care. MARLIN MEREDITH MD, MIRTA L MANAGER [employer] Dec 12, 2024 11:58
[2024-12-13] VITALS (8 sets, daily range): BP systolic 94–119; BP diastolic 38–91; PULSE 68–85; RESP 16–22; TEMP 97.3–98.5; O2SAT 96–98
[2024-12-13] MEDS ORDERED: CLON1TAB23 PO (07:14)
--- NOTE | 2024-12-13 14:01 | PN ---
[facility] PROGRESS NOTE Date of Service: Dec 13, 2024 Time of Service: 14:00 SUBJECTIVE: [ ] This is a 59-year-old female was admitted on 12/10/2024 with chief complaints of right foot swelling and redness. Patient was admitted for for cellulitis. ID we will be following for antibiotic stewardship. Patient reports pain has improved since admission continues with redness and blisters. We will wait for cultures. 12/12/2024 late entry patient continues to elevate her right foot continue with redness no fevers overnight we will continue with empiric antibiotics and recommendations from ID REVIEW OF SYSTEMS CONSTITUTIONAL: Denies fevers, chills, or night sweats. No unintentional weight loss reported. NEUROLOGICAL: Denies headache, amaurosis fugax, motor weakness, sensory deficit, vertigo/spinning sensation, gait abnormalities, or tremors. ENT: No hearing loss, otalgia, otorrhea, rhinitis, rhinorrhea, hoarseness, or sore throat. CARDIOVASCULAR: Denies any exertional angina, dyspnea on exertion, orthopnea, paroxysmal nocturnal dyspnea, palpitations, life-threatening arrhythmias, claudication. PULMONARY: Denies any shortness of breath, cough, phlegm/sputum, hemoptysis, pleuritic chest pain. SLEEP: Denies morning headaches, daytime somnolence or napping. Denies difficulty falling asleep, staying asleep, waking from sleep. Denies knowledge of snoring. GASTROINTESTINAL: Denies any type of dysphagia to either liquids or solids. Denies nausea, vomiting, pyrosis, early satiety, abdominal pain, diarrhea, constipation, or changes in stool consistency or caliber. Denies coffee-ground emesis, hematemesis, hematochezia, or melanotic stools. GENITOURINARY: Denies frequency, urgency, nocturia, hematuria or incontinence (Storage/Irritative symptoms.) Low urinary stream, straining to void, urinary intermittency or hesitancy, splitting of the voiding stream, terminal dribbling. ENDOCRINOLOGIC: Denies polyuria, polydipsia, polyphagia or heat/cold intolerances. HEMATOLOGIC: Denies thrombophilia/previous clots, or coagulopathy/bleeding disorders. ONCOLOGIC: Denies personal history of malignancy. DERMATOLOGIC: Right foot redness up to right leg with swelling and close blister PSYCHIATRIC: Denies any suicidal or homicidal ideation. Denies hallucinations. PHYSICAL EXAM GENERAL APPEARANCE: The patient is awake, alert, and oriented, in no acute cardiopulmonary distress. NEUROLOGICAL: Cranial nerves II-XII grossly intact. Motor is 5/5 in bilateral upper and lower extremities proximal to distal. No sensory deficits. HEENT: Face is symmetric. Pupils are equal and reactive. Extraocular movements are intact. NECK: Supple. No JVD. No thyromegaly. No submental, submandibular, pre- /postauricular, occipital or supraclavicular lymphadenopathy. CHEST: Normal chest expansion. No Telemetry. LUNGS: Absence of any rales, rhonchi or any wheezing. CARDIOVASCULAR: Regular. S1 and S2 normal. No appreciable rubs, murmurs or gallops. ABDOMEN: Soft, nontender, and nondistended. There is no rebound, voluntary guarding, or rigidity. : Deferred. No Smiley. EXTREMITIES: Right foot swollen up to her right lower leg with erythema and close blister on the right foot No clubbing. Good capillary refill. SKIN: No skin breakdown. Vital Signs (last 8hr) Date Time Temp Pulse Resp B/P (MAP) Pulse Ox O2 Delivery O2 Flow Rate FiO2 12/13/24 12:00 98.4 76 22 113/38 95 Room Air 12/13/24 08:22 98 Room Air* 0 21 12/13/24 08:00 98.2 69 16 105/61 98 Room Air LABS: Laboratory: Test 12/13/24 11:03 12/12/24 11:10 Range/Units Whole Blood Glucose 130 H 70-110 MG/DL Vancomycin Level Trough 10.9 10.0-20.0 UG/ML Current Medications Medications (Trade) Dose Ordered Sig/Eliel Route PRN Reason Start Time Stop Time Status Last Admin Dose Admin Acetaminophen (TYLenol 325MG TAB) 650 mg Q4H PRN PO MILD PAIN (1-3) 12/10/24 22:30 01/09/25 22:29 Acetaminophen (TYLenol 325MG TAB) 650 mg Q6H PRN PO TEMPERATURE GREATER THAN 101.5 12/10/24 22:30 01/09/25 22:29 Cefepime HCl (MAXipime 1 GM vial) 1 gm Q8H IVPB 12/11/24 15:00 12/21/24 14:59 12/13/24 06:05 1 GM Clonazepam (KLONopin 1MG TAB) 1 mg DAILY PO 12/12/24 09:00 01/11/25 08:59 12/13/24 08:22 1 MG Dextrose (D50w) 50 ml AD PRN IV HYPOGLYCEMIA PROTOCOL 12/10/24 22:30 01/09/25 22:29 Docusate Sodium (COLace 100MG CAP) 100 mg DAILY PO 12/12/24 09:00 01/11/25 08:59 12/13/24 08:22 100 MG Enoxaparin Sodium (Lovenox) 40 mg DAILY SQ 12/11/24 09:00 01/10/25 08:59 12/13/24 08:22 40 MG Famotidine (Pepcid 20mg Tab) 20 mg BID PO 12/11/24 09:00 01/10/25 08:59 12/13/24 08:22 20 MG Glucagon (Glucagon 1mg Kit) 1 mg AD PRN IM HYPOGLYCEMIA PROTOCOL 12/10/24 22:30 01/09/25 22:29 Insulin Human Regular (humuLIN R 100 UNIT/ML 3ML) INSULIN SLIDING SCAL... ACHS SQ 12/11/24 07:30 01/10/25 07:29 12/12/24 20:15 2 UNIT Lactulose (Constulose 20gm/ 30ml Udcup) 20 gm BID PRN PO CONSTIPATION 12/11/24 13:00 01/10/25 12:59 Lisinopril (Prinivil 2.5mg) 2.5 mg DAILY PO 12/12/24 09:00 01/11/25 08:59 12/13/24 08:22 2.5 MG Magnesium Sulfate 50 ml @ 0 mls/hr PROTOCOL PRN IV OTHER [SEE ORDER COMMENTS] 12/10/24 22:30 01/09/25 22:29 12/11/24 11:36 50 MLS/HR Ondansetron HCl (zoFRAN 4MG INJ) 4 mg Q6H PRN IV NAUSEA/VOMITING 12/10/24 22:30 01/09/25 22:29 Piperacillin Sod/ Tazobactam Sod 50 ml @ 200 mls/hr STAT STAT IVPB 12/10/24 21:08 12/11/24 14:54 DC 12/10/24 21:49 200 MLS/HR Piperacillin Sod/ Tazobactam Sod (Zosyn 3.375gm+NS 50ml) 3.375 gm Q8H IVPB 12/10/24 06:00 12/11/24 00:58 DC Piperacillin Sod/ Tazobactam Sod (Zosyn 3.375gm+NS 50ml) 3.375 gm Q8H IVPB 12/11/24 06:00 12/11/24 14:54 DC 12/11/24 06:00 3.375 GM Potassium Chloride 100 ml @ 100 mls/hr AD PRN IV POTASSIUM PROTOCOL 12/10/24 22:30 01/09/25 22:29 Potassium Chloride (K-Dur/Klor-Con 20meq) 20 meq AD PRN PO POTASSIUM PROTOCOL 12/10/24 22:30 01/09/25 22:29 Potassium Chloride (KCl 10% Elixir 20meq/15ml) 20 meq AD PRN PO POTASSIUM PROTOCOL 12/10/24 22:30 01/09/25 22:29 Simvastatin (zoCOR) 10 mg HS PO 12/11/24 21:00 01/10/25 20:59 12/12/24 20:11 10 MG Tramadol HCl (UltRAM) 50 mg Q6H PRN PO MODERATE PAIN (4-6) 12/10/24 22:30 12/15/24 22:29 12/13/24 06:05 50 MG Vancomycin HCl 250 ml @ 125 mls/hr Q12H IV 12/11/24 09:00 12/11/24 11:37 DC Vancomycin HCl 250 ml @ 125 mls/hr Q12H IV 12/11/24 12:00 12/21/24 11:59 12/13/24 12:33 125 MLS/HR Vancomycin HCl (Vancomycin Protocol) 1 each AD IV 12/10/24 23:00 12/24/24 22:59 Vancomycin HCl (Vancomycin 1g/ 250ml Kit) 1 gm Q12H IV 12/10/24 22:30 12/10/24 22:36 DC DIAGNOSTICS / RADIOLOGY: [ ] ASSESSMENT: Right foot cellulitis POA Hypertension POA Diabetes type II POA Hyperlipidemia POA Anxiety disorder POA Seizure disorder POA Morbid obesity POA History of right foot cellulitis POA PLAN: Admit: Remains in ED holding transitioned to medical floor condition: Guarded Status: Full IVF: NS at 75ml hr Consultants infectious disease for antibiotic stewardship Antibiotics: Vancomycin if Zosyn IV. Pending blood cultures Test: Reviewed Doppler imaging DVT was ruled out Labs cbc, cmp, mag+ Replace electrolytes as needed as per protocol to keep potassium above 4.0 magnesium 2.0. Home medication reviewed and reconciled weight management discussed: risk factors diet and exercising Wound care: elevated lower ext. offloading. PRN: MEDICATIONS Tylenol 650 mg po every 4 hrs for fever Zofran 4 mg IV every 6 hrs for n/v Hydralazine 5 mg IV every 4 hrs systolic pressure > 160 bowel regiment: lactulose 20 gm PO BID PRN constipation and daily Colace 100 mg daily Pain management: Ultram every 6 hours Supportive measures: DVT ppx, GI ppx all questions answered Supervising MD: Dr. Barrios c/d This document was generated in part using voice recognition software, occasional wrong word or sound alike substitutions may have occurred due to the inherent limitations of voice recognition software. Read the chart carefully and recognize using context, where the substitutions have occurred. Although every effort was made to edit the content, power lineworker and typing errors may occur ATTESTATION BY PHYSICIAN I have seen and examined the patient. I reviewed the documentation, medical decision making, and treatment plan as noted by the mid-level provider above. I agree with the findings and plan of care. OKSANA BARRIOS MD, ELIZABETH NP Dec 13, 2024 14:00
--- NOTE | 2024-12-13 14:01 | PN ---
[facility] PROGRESS NOTE Date of Service: Dec 13, 2024 Time of Service: 14:01 SUBJECTIVE: [ ] This is a 59-year-old female was admitted on 12/10/2024 with chief complaints of right foot swelling and redness. Patient was admitted for for cellulitis. ID we will be following for antibiotic stewardship. Patient reports pain has improved since admission continues with redness and blisters. We will wait for cultures. 12/12/2024 late entry patient continues to elevate her right foot continue with redness no fevers overnight we will continue with empiric antibiotics and recommendations from ID 12/13/2024 patient is keeping her leg elevated improving with IV antibiotics blood culture so far negative we will wait for ID final recommendation deescalate antibiotics to p.o.. REVIEW OF SYSTEMS CONSTITUTIONAL: Denies fevers, chills, or night sweats. No unintentional weight loss reported. NEUROLOGICAL: Denies headache, amaurosis fugax, motor weakness, sensory deficit, vertigo/spinning sensation, gait abnormalities, or tremors. ENT: No hearing loss, otalgia, otorrhea, rhinitis, rhinorrhea, hoarseness, or sore throat. CARDIOVASCULAR: Denies any exertional angina, dyspnea on exertion, orthopnea, paroxysmal nocturnal dyspnea, palpitations, life-threatening arrhythmias, claudi cation. PULMONARY: Denies any shortness of breath, cough, phlegm/sputum, hemoptysis, pleuritic chest pain. SLEEP: Denies morning headaches, daytime somnolence or napping. Denies difficulty falling asleep, staying asleep, waking from sleep. Denies knowledge of snoring. GASTROINTESTINAL: Denies any type of dysphagia to either liquids or solids. Denies nausea, vomiting, pyrosis, early satiety, abdominal pain, diarrhea, constipation, or changes in stool consistency or caliber. Denies coffee-ground emesis, hematemesis, hematochezia, or melanotic stools. GENITOURINARY: Denies frequency, urgency, nocturia, hematuria or incontinence (Storage/Irritative symptoms.) Low urinary stream, straining to void, urinary intermittency or hesitancy, splitting of the voiding stream, terminal dribbling. ENDOCRINOLOGIC: Denies polyuria, polydipsia, polyphagia or heat/cold intolerances. HEMATOLOGIC: Denies thrombophilia/previous clots, or coagulopathy/bleeding disorders. ONCOLOGIC: Denies personal history of malignancy. DERMATOLOGIC: Right foot redness up to right leg with swelling and close blister PSYCHIATRIC: Denies any suicidal or homicidal ideation. Denies hallucinations. PHYSICAL EXAM GENERAL APPEARANCE: The patient is awake, alert, and oriented, in no acute cardiopulmonary distress. NEUROLOGICAL: Cranial nerves II-XII grossly intact. Motor is 5/5 in bilateral upper and lower extremities proximal to distal. No sensory deficits. HEENT: Face is symmetric. Pupils are equal and reactive. Extraocular movements are intact. NECK: Supple. No JVD. No thyromegaly. No submental, submandibular, pre- /postauricular, occipital or supraclavicular lymphadenopathy. CHEST: Normal chest expansion. No Telemetry. LUNGS: Absence of any rales, rhonchi or any wheezing. CARDIOVASCULAR: Regular. S1 and S2 normal. No appreciable rubs, murmurs or gallops. ABDOMEN: Soft, nontender, and nondistended. There is no rebound, voluntary guarding, or rigidity. : Deferred. No Smiley. EXTREMITIES: Right foot swollen up to her right lower leg with erythema and close blister on the right foot No clubbing. Good capillary refill. SKIN: No skin breakdown. Vital Signs (last 8hr) Date Time Temp Pulse Resp B/P (MAP) Pulse Ox O2 Delivery O2 Flow Rate FiO2 12/13/24 12:00 98.4 76 22 113/38 95 Room Air 12/13/24 08:22 98 Room Air* 0 21 12/13/24 08:00 98.2 69 16 105/61 98 Room Air LABS: Laboratory: Test 12/13/24 11:03 12/12/24 11:10 Range/Units Whole Blood Glucose 130 H 70-110 MG/DL Vancomycin Level Trough 10.9 10.0-20.0 UG/ML Current Medications Medications (Trade) Dose Ordered Sig/Eliel Route PRN Reason Start Time Stop Time Status Last Admin Dose Admin Acetaminophen (TYLenol 325MG TAB) 650 mg Q4H PRN PO MILD PAIN (1-3) 12/10/24 22:30 01/09/25 22:29 Acetaminophen (TYLenol 325MG TAB) 650 mg Q6H PRN PO TEMPERATURE GREATER THAN 101.5 12/10/24 22:30 01/09/25 22:29 Cefepime HCl (MAXipime 1 GM vial) 1 gm Q8H IVPB 12/11/24 15:00 12/21/24 14:59 12/13/24 06:05 1 GM Clonazepam (KLONopin 1MG TAB) 1 mg DAILY PO 12/12/24 09:00 01/11/25 08:59 12/13/24 08:22 1 MG Dextrose (D50w) 50 ml AD PRN IV HYPOGLYCEMIA PROTOCOL 12/10/24 22:30 01/09/25 22:29 Docusate Sodium (COLace 100MG CAP) 100 mg DAILY PO 12/12/24 09:00 01/11/25 08:59 12/13/24 08:22 100 MG Enoxaparin Sodium (Lovenox) 40 mg DAILY SQ 12/11/24 09:00 01/10/25 08:59 12/13/24 08:22 40 MG Famotidine (Pepcid 20mg Tab) 20 mg BID PO 12/11/24 09:00 01/10/25 08:59 12/13/24 08:22 20 MG Glucagon (Glucagon 1mg Kit) 1 mg AD PRN IM HYPOGLYCEMIA PROTOCOL 12/10/24 22:30 01/09/25 22:29 Insulin Human Regular (humuLIN R 100 UNIT/ML 3ML) INSULIN SLIDING SCAL... ACHS SQ 12/11/24 07:30 01/10/25 07:29 12/12/24 20:15 2 UNIT Lactulose (Constulose 20gm/ 30ml Udcup) 20 gm BID PRN PO CONSTIPATION 12/11/24 13:00 01/10/25 12:59 Lisinopril (Prinivil 2.5mg) 2.5 mg DAILY PO 12/12/24 09:00 01/11/25 08:59 12/13/24 08:22 2.5 MG Magnesium Sulfate 50 ml @ 0 mls/hr PROTOCOL PRN IV OTHER [SEE ORDER COMMENTS] 12/10/24 22:30 01/09/25 22:29 12/11/24 11:36 50 MLS/HR Ondansetron HCl (zoFRAN 4MG INJ) 4 mg Q6H PRN IV NAUSEA/VOMITING 12/10/24 22:30 01/09/25 22:29 Piperacillin Sod/ Tazobactam Sod 50 ml @ 200 mls/hr STAT STAT IVPB 12/10/24 21:08 12/11/24 14:54 DC 12/10/24 21:49 200 MLS/HR Piperacillin Sod/ Tazobactam Sod (Zosyn 3.375gm+NS 50ml) 3.375 gm Q8H IVPB 12/10/24 06:00 12/11/24 00:58 DC Piperacillin Sod/ Tazobactam Sod (Zosyn 3.375gm+NS 50ml) 3.375 gm Q8H IVPB 12/11/24 06:00 12/11/24 14:54 DC 12/11/24 06:00 3.375 GM Potassium Chloride 100 ml @ 100 mls/hr AD PRN IV POTASSIUM PROTOCOL 12/10/24 22:30 01/09/25 22:29 Potassium Chloride (K-Dur/Klor-Con 20meq) 20 meq AD PRN PO POTASSIUM PROTOCOL 12/10/24 22:30 01/09/25 22:29 Potassium Chloride (KCl 10% Elixir 20meq/15ml) 20 meq AD PRN PO POTASSIUM PROTOCOL 12/10/24 22:30 01/09/25 22:29 Simvastatin (zoCOR) 10 mg HS PO 12/11/24 21:00 01/10/25 20:59 12/12/24 20:11 10 MG Tramadol HCl (UltRAM) 50 mg Q6H PRN PO MODERATE PAIN (4-6) 12/10/24 22:30 12/15/24 22:29 12/13/24 06:05 50 MG Vancomycin HCl 250 ml @ 125 mls/hr Q12H IV 12/11/24 09:00 12/11/24 11:37 DC Vancomycin HCl 250 ml @ 125 mls/hr Q12H IV 12/11/24 12:00 12/21/24 11:59 12/13/24 12:33 125 MLS/HR Vancomycin HCl (Vancomycin Protocol) 1 each AD IV 12/10/24 23:00 12/24/24 22:59 Vancomycin HCl (Vancomycin 1g/ 250ml Kit) 1 gm Q12H IV 12/10/24 22:30 12/10/24 22:36 DC DIAGNOSTICS / RADIOLOGY: [ ] ASSESSMENT: Right foot cellulitis POA Hypertension POA Diabetes type II POA Hyperlipidemia POA Anxiety disorder POA Seizure disorder POA Morbid obesity POA History of right foot cellulitis POA PLAN: Admit: Remains in ED holding transitioned to medical floor condition: Guarded Status: Full IVF: Zeenat [facility] infectious disease for antibiotic stewardship Antibiotics: Vancomycin and cefepime Pending blood cultures so far negative Labs cbc, cmp, mag+ Replace electrolytes as needed as per protocol to keep potassium above 4.0 magnesium 2.0. weight management discussed: risk factors diet and exercising Wound care: elevated lower ext. offloading. PRN: MEDICATIONS Tylenol 650 mg po every 4 hrs for fever Zofran 4 mg IV every 6 hrs for n/v Hydralazine 5 mg IV every 4 hrs systolic pressure > 160 bowel regiment: lactulose 20 gm PO BID PRN constipation and daily Colace 100 mg daily Pain management: Ultram every 6 hours Supportive measures: DVT ppx, GI ppx all questions answered Supervising MD: Dr. Barrios c/d This document was generated in part using voice recognition software, occasional wrong word or sound alike substitutions may have occurred due to the inherent limitations of voice recognition software. Read the chart carefully and recognize using context, where the substitutions have occurred. Although every effort was made to edit the content, bacon skinner and typing errors may occur ATTESTATION BY PHYSICIAN I have seen and examined the patient. I reviewed the documentation, medical dec ision making, and treatment plan as noted by the mid-level provider above. I agree with the findings and plan of care. OKSANA BARRIOS MD, ELIZABETH NP Dec 13, 2024 14:01
[2024-12-14] VITALS (8 sets, daily range): BP systolic 91–113; BP diastolic 45–62; PULSE 63–72; RESP 17–20; TEMP 97.6–98.2; O2SAT 90–96
--- NOTE | 2024-12-14 01:37 | PN ---
INFECTIOUS DISEASE FOLLOWUP NOTE DATE OF SERVICE: 12/13/2024 SUBJECTIVE: The patient is seen and examined at bedside today. The patient has no fever, no chills. No nausea or vomiting. Still has pain to the right foot. Tolerating antibiotic. No palpitation or orthopnea. No depression. No suicidal ideation. PHYSICAL EXAMINATION: VITAL SIGNS: Temperature today 98.3. EYES: No icterus. Pupils equal and reactive. HENT: No oral thrush seen. Moist oral mucosa. NECK: Supple, no JVD or thyromegaly. LUNGS: Good air entry. No rales, no rhonchi. CARDIOVASCULAR: S1, S2 regular. No murmur heard. ABDOMEN: Full, soft, nontender. Bowel sounds are present. ____. CENTRAL NERVOUS SYSTEM: Awake, alert, oriented x 3. No focal deficits. SKIN: No rashes, no itchiness. LYMPHATIC: No peripheral lymphadenopathy. BACK: No deformity, no pressure ulcer. EXTREMITIES: Cellulitis and blister involving dorsum of the right foot. ASSESSMENT: A 59-year-old female with multiple problems include: * Right foot cellulitis. * Morbid obesity. * Diabetes mellitus. * Hypertension. PLAN: * Keep right leg elevated. * Continue cefepime. * Continue vancomycin. * Continue ____. * Continue antidiabetic. * Monitor electrolytes. TID: [id number] RECEIPT: [id number]
[2024-12-14] MEDS: ceFEPime HCL 1 GM VIAL IVPB SCH (02:55)
[2024-12-14 05:17] LABS: BASOPHILS # (AUTO) 0.03 K/uL (0.00-0.20); BASOPHILS % (AUTO) 0.4 % (0.0-5.0); EOSINOPHILS # (AUTO) 0.23 K/uL (0.00-0.70); EOSINOPHILS % (AUTO) 3.2 % (0.0-8.0); HEMATOCRIT 33.9 % (36-48); IMMATURE GRANULOCYTE ABSOLUTE 0.11 K/uL (0-1); LYMPHOCYTES # (AUTO) 2.2 K/uL (1.0-4.8); LYMPHOCYTES % (AUTO) 30.9 % (21.0-51.0); MEAN CORPUSCULAR HEMOGLOBIN 29.7 pg (27.0-33.0); MEAN CORPUSCULAR HGB CONC 32.7 g/dL (32.0-36.0); MEAN CORPUSCULAR VOLUME 90.6 fL (79-99); MONOCYTES # (AUTO) 0.5 K/uL (0.1-1.0); MONOCYTES % (AUTO) 7.1 % (3.0-13.0); NEUTROPHILS # (AUTO) 4.1 K/uL (1.8-7.7); NEUTROPHILS % (AUTO) 56.9 % (40.0-77.0); PLATELET COUNT (AUTO) 209 K/uL (130-400); RED BLOOD CELL COUNT(AUTO) 3.74 MIL/uL (4.00-5.50); WHITE BLOOD COUNT (AUTO) 7.2 K/uL (4.8-10.8)
[2024-12-14 05:30] LABS: ALBUMIN 2.8 g/dL (3.5-5.0); BILIRUBIN,TOTAL 0.3 mg/dL (0.2-1.0); CREATININE 0.7 mg/dL (0.5-1.0); MAGNESIUM 1.9 mg/dL (1.80-2.40); POTASSIUM 3.9 mmol/L (3.5-5.1); TOTAL PROTEIN, SERUM 6.6 g/dL (6.0-8.3)
--- NOTE | 2024-12-14 10:59 | PN ---
INFECTIOUS DISEASE PROGRESS NOTE Date of Service: Dec 14, 2024 SUBJECTIVE: This is a 59-year-old female patient with past medical history of diabetes mellitus and right foot cellulitis who presented to the emergency room with chief complaints of right foot swelling and redness. Patient had a low-grade fever of 99.7. A venous Doppler done on admission was negative for DVT and a foot x-ray was negative for fracture but showed soft tissue edema. Patient was seen and examined at bedside in room 320. Patient is awake, alert and oriented x3. The swelling to the right foot has improved but continues with blistering and erythema to the dorsal aspect of the foot. No fever this morning, temperature is 98.2 and a WBC of 7.2. Will continue on cefepime and vancomycin per pharmacy protocol. We will continue to follow patient's care. PHYSICAL EXAM EYES: Anicteric. Pupils equal and reactive. HENT: No oral thrush seen, moist Oral mucosa. NECK: Supple, no JVD or thyromegaly. LUNGS: Good air entry. No rales, no rhonchi. CARDIOVASCULAR: S1, S2 regular. No murmur heard. ABDOMEN: Soft, non tender, bowel sounds present, no organomegaly. CENTRAL NERVOUS SYSTEM: Awake, alert, oriented x 3. SKIN: No rashes, no swelling. LYMPHATICS: No peripheral lymphadenopathy MUSCULOSKELETAL: No joint swelling, erythema or tenderness. EXTREMITIES: No cyanosis or clubbing. Right foot swelling and erythema. BACK: No deformity, no pressure ulcer. GENITOURINARY: No dysuria or hematuria. Vital Sign (Last 12 Hours) 12/14/24 12/14/24 12/14/24 00:00 04:00 08:00 Temp 97.5 97.5 98.2 Pulse 71 71 63 Resp 18 17 20 B/P (MAP) 106/62 91/53 113/45 Pulse Ox 97 97 96 O2 Delivery Room Air Room Air Room Air Intake & Output (last 24hrs) 12/13/24 12/13/24 12/14/24 15:00 23:00 07:00 Intake Total 240 ml Balance 240 ml LABS: Laboratory: Test 12/14/24 05:39 12/14/24 05:09 12/13/24 22:42 Range/Units Whole Blood Glucose 106 70-110 MG/DL White Blood Count 7.2 4.8-10.8 K/uL Red Blood Count 3.74 L 4.00-5.50 MIL/uL Hemoglobin 11.1 L 12.0-16.0 g/dL Hematocrit 33.9 L 36-48 % Mean Corpuscular Volume 90.6 79-99 fL Mean Corpuscular Hemoglobin 29.7 27.0-33.0 pg Mean Corpuscular Hemoglobin Concent 32.7 32.0-36.0 g/dL Red Cell Distribution Width 12.0 11.0-15.5 % Platelet Count 209 # 130-400 K/uL Mean Platelet Volume 10.2 7.5-10.5 fL Immature Granulocyte % (Auto) 1.5 H 0-1 % Neutrophils (%) (Auto) 56.9 40.0-77.0 % Lymphocytes (%) (Auto) 30.9 21.0-51.0 % Monocytes (%) (Auto) 7.1 3.0-13.0 % Eosinophils (%) (Auto) 3.2 0.0-8.0 % Basophils (%) (Auto) 0.4 0.0-5.0 % Neutrophils # (Auto) 4.1 1.8-7.7 K/uL Lymphocytes # (Auto) 2.2 1.0-4.8 K/uL Monocytes # (Auto) 0.5 0.1-1.0 K/uL Eosinophils # (Auto) 0.23 0.00-0.70 K/uL Basophils # (Auto) 0.03 0.00-0.20 K/uL Absolute Immature Granulocyte (auto 0.11 0-1 K/uL Nucleated Red Blood Cells 0.0 0.0-0.19 % Sodium Level 141 136-145 mmol/L Potassium Level 3.9 3.5-5.1 mmol/L Chloride Level 105 101-111 mmol/L Carbon Dioxide Level 31 21-32 mmol/L Blood Urea Nitrogen 6 L 7-18 mg/dL Creatinine 0.7 0.5-1.0 mg/dL Glomerular Filtration Rate Calc 100 >90 mL/min Random Glucose 111 H 70-105 mg/dL Total Calcium 8.5 8.5-10.1 mg/dL Magnesium Level 1.90 1.80-2.40 mg/dL Total Bilirubin 0.3 0.2-1.0 mg/dL Aspartate Amino Transf (AST/SGOT) 26 10-37 U/L Alanine Aminotransferase (ALT/SGPT) 46 12-78 U/L Alkaline Phosphatase 54 50-136 U/L Total Protein 6.6 6.0-8.3 g/dL Albumin 2.8 L 3.5-5.0 g/dL Vancomycin Level Trough 15.4 # 10.0-20.0 UG/ML ASSESSMENT: Right foot edema with cellulitis. Diabetes mellitus. Morbid obesity. Hypertension. History of seizure disorders. PLAN: Continue vancomycin per pharmacy protocol. Continue cefepime IV. Continue pain management. Continue monitoring glucose levels. Keep right leg elevated on pillow. Avoid using socks on the right foot. Seizure precautions. This case was reviewed and discussed with my supervising physician and the above assessment and plan was formulated and agreed upon. ATTESTATION BY PHYSICIAN I have seen and examined the patient. I reviewed the documentation, medical decision making, and treatment plan as noted by the mid-level provider above. I agree with the findings and plan of care. MARLIN MEREDITH MD, [facility] Dec 14, 2024 10:58
--- NOTE | 2024-12-14 11:09 | PN ---
[facility] PROGRESS NOTE Date of Service: Dec 14, 2024 Time of Service: 11:08 SUBJECTIVE: [ ] This is a 59-year-old female was admitted on 12/10/2024 with chief complaints of right foot swelling and redness. Patient was admitted for for cellulitis. ID we will be following for antibiotic stewardship. Patient reports pain has improved since admission continues with redness and blisters. We will wait for cultures. 12/12/2024 late entry patient continues to elevate her right foot continue with redness no fevers overnight we will continue with empiric antibiotics and recommendations from ID 12/13/2024 patient is keeping her leg elevated improving with IV antibiotics blood culture so far negative we will wait for ID final recommendation deescalate antibiotics to p.o.. 12/14/24 patient is fully awake alert oriented x3. ID continues to follow patient remains in IV antibiotics we will wait for deescalate antibiotics to p.o. continues with blistering and erythema to the dorsal aspect of the foot. Reports no pain REVIEW OF SYSTEMS CONSTITUTIONAL: Denies fevers, chills, or night sweats. No unintentional weight loss reported. NEUROLOGICAL: Denies headache, amaurosis fugax, motor weakness, sensory deficit, vertigo/spinning sensation, gait abnormalities, or tremors. ENT: No hearing loss, otalgia, otorrhea, rhinitis, rhinorrhea, hoarseness, or sore throat. CARDIOVASCULAR: Denies any exertional angina, dyspnea on exertion, orthopnea, paroxysmal nocturnal dyspnea, palpitations, life-threatening arrhythmias, claudication. PULMONARY: Denies any shortness of breath, cough, phlegm/sputum, hemoptysis, pleuritic chest pain. SLEEP: Denies morning headaches, daytime somnolence or napping. Denies difficulty falling asleep, staying asleep, waking from sleep. Denies knowledge of snoring. GASTROINTESTINAL: Denies any type of dysphagia to either liquids or solids. Denies nausea, vomiting, pyrosis, early satiety, abdominal pain, diarrhea, constipation, or changes in stool consistency or caliber. Denies coffee-ground emesis, hematemesis, hematochezia, or melanotic stools. GENITOURINARY: Denies frequency, urgency, nocturia, hematuria or incontinence (Storage/Irritative symptoms.) Low urinary stream, straining to void, urinary intermittency or hesitancy, splitting of the voiding stream, terminal dribbling. ENDOCRINOLOGIC: Denies polyuria, polydipsia, polyphagia or heat/cold intolerances. HEMATOLOGIC: Denies thrombophilia/previous clots, or coagulopathy/bleeding disorders. ONCOLOGIC: Denies personal history of malignancy. DERMATOLOGIC: Right foot redness up to right leg with swelling and close blister PSYCHIATRIC: Denies any suicidal or homicidal ideation. Denies hallucinations. PHYSICAL EXAM GENERAL APPEARANCE: The patient is awake, alert, and oriented, in no acute cardiopulmonary distress. NEUROLOGICAL: Cranial nerves II-XII grossly intact. Motor is 5/5 in bilateral upper and lower extremities proximal to distal. No sensory deficits. HEENT: Face is symmetric. Pupils are equal and reactive. Extraocular movements are intact. NECK: Supple. No JVD. No thyromegaly. No submental, submandibular, pre- /postauricular, occipital or supraclavicular lymphadenopathy. CHEST: Normal chest expansion. No Telemetry. LUNGS: Absence of any rales, rhonchi or any wheezing. CARDIOVASCULAR: Regular. S1 and S2 normal. No appreciable rubs, murmurs or gallops. ABDOMEN: Soft, nontender, and nondistended. There is no rebound, voluntary guarding, or rigidity. : Deferred. No Smiley. EXTREMITIES: Right foot swollen up to her right lower leg with erythema and close blister on the right foot No clubbing. Good capillary refill. SKIN: No skin breakdown. Vital Signs (last 8hr) Date Time Temp Pulse Resp B/P (MAP) Pulse Ox O2 Delivery O2 Flow Rate FiO2 12/14/24 08:00 98.2 63 20 113/45 96 Room Air 12/14/24 04:00 97.5 71 17 91/53 97 Room Air LABS: Laboratory: Test 12/14/24 05:39 12/14/24 05:09 12/13/24 22:42 Range/Units Whole Blood Glucose 106 70-110 MG/DL White Blood Count 7.2 4.8-10.8 K/uL Red Blood Count 3.74 L 4.00-5.50 MIL/uL Hemoglobin 11.1 L 12.0-16.0 g/dL Hematocrit 33.9 L 36-48 % Mean Corpuscular Volume 90.6 79-99 fL Mean Corpuscular Hemoglobin 29.7 27.0-33.0 pg Mean Corpuscular Hemoglobin Concent 32.7 32.0-36.0 g/dL Red Cell Distribution Width 12.0 11.0-15.5 % Platelet Count 209 # 130-400 K/uL Mean Platelet Volume 10.2 7.5-10.5 fL Immature Granulocyte % (Auto) 1.5 H 0-1 % Neutrophils (%) (Auto) 56.9 40.0-77.0 % Lymphocytes (%) (Auto) 30.9 21.0-51.0 % Monocytes (%) (Auto) 7.1 3.0-13.0 % Eosinophils (%) (Auto) 3.2 0.0-8.0 % Basophils (%) (Auto) 0.4 0.0-5.0 % Neutrophils # (Auto) 4.1 1.8-7.7 K/uL Lymphocytes # (Auto) 2.2 1.0-4.8 K/uL Monocytes # (Auto) 0.5 0.1-1.0 K/uL Eosinophils # (Auto) 0.23 0.00-0.70 K/uL Basophils # (Auto) 0.03 0.00-0.20 K/uL Absolute Immature Granulocyte (auto 0.11 0-1 K/uL Nucleated Red Blood Cells 0.0 0.0-0.19 % Sodium Level 141 136-145 mmol/L Potassium Level 3.9 3.5-5.1 mmol/L Chloride Level 105 101-111 mmol/L Carbon Dioxide Level 31 21-32 mmol/L Blood Urea Nitrogen 6 L 7-18 mg/dL Creatinine 0.7 0.5-1.0 mg/dL Glomerular Filtration Rate Calc 100 >90 mL/min Random Glucose 111 H 70-105 mg/dL Total Calcium 8.5 8.5-10.1 mg/dL Magnesium Level 1.90 1.80-2.40 mg/dL Total Bilirubin 0.3 0.2-1.0 mg/dL Aspartate Amino Transf (AST/SGOT) 26 10-37 U/L Alanine Aminotransferase (ALT/SGPT) 46 12-78 U/L Alkaline Phosphatase 54 50-136 U/L Total Protein 6.6 6.0-8.3 g/dL Albumin 2.8 L 3.5-5.0 g/dL Vancomycin Level Trough 15.4 # 10.0-20.0 UG/ML Current Medications Medications (Trade) Dose Ordered Sig/Eliel Route PRN Reason Start Time Stop Time Status Last Admin Dose Admin Acetaminophen (TYLenol 325MG TAB) 650 mg Q4H PRN PO MILD PAIN (1-3) 12/10/24 22:30 01/09/25 22:29 Acetaminophen (TYLenol 325MG TAB) 650 mg Q6H PRN PO TEMPERATURE GREATER THAN 101.5 12/10/24 22:30 01/09/25 22:29 Cefepime HCl (MAXipime 1 GM vial) 1 gm Q8H IVPB 12/11/24 15:00 12/13/24 22:31 DC 12/13/24 18:27 1 GM Cefepime HCl (MAXipime 1 GM vial) 1 gm Q8H IVPB 12/14/24 03:00 12/21/24 02:59 12/14/24 02:55 1 GM Clonazepam (KLONopin 1MG TAB) 1 mg DAILY PO 12/12/24 09:00 01/11/25 08:59 12/14/24 08:23 1 MG Dextrose (D50w) 50 ml AD PRN IV HYPOGLYCEMIA PROTOCOL 12/10/24 22:30 01/09/25 22:29 Docusate Sodium (COLace 100MG CAP) 100 mg DAILY PO 12/12/24 09:00 01/11/25 08:59 12/14/24 08:23 100 MG Enoxaparin Sodium (Lovenox) 40 mg DAILY SQ 12/11/24 09:00 01/10/25 08:59 12/14/24 08:22 40 MG Famotidine (Pepcid 20mg Tab) 20 mg BID PO 12/11/24 09:00 01/10/25 08:59 12/14/24 08:23 20 MG Glucagon (Glucagon 1mg Kit) 1 mg AD PRN IM HYPOGLYCEMIA PROTOCOL 12/10/24 22:30 01/09/25 22:29 Insulin Human Regular (humuLIN R 100 UNIT/ML 3ML) INSULIN SLIDING SCAL... ACHS SQ 12/11/24 07:30 01/10/25 07:29 12/12/24 20:15 2 UNIT Lactulose (Constulose 20gm/ 30ml Udcup) 20 gm BID PRN PO CONSTIPATION 12/11/24 13:00 01/10/25 12:59 Lisinopril (Prinivil 2.5mg) 2.5 mg DAILY PO 12/12/24 09:00 01/11/25 08:59 12/14/24 08:23 2.5 MG Magnesium Sulfate 50 ml @ 0 mls/hr PROTOCOL PRN IV OTHER [SEE ORDER COMMENTS] 12/10/24 22:30 01/09/25 22:29 12/14/24 06:09 25 MLS/HR Ondansetron HCl (zoFRAN 4MG INJ) 4 mg Q6H PRN IV NAUSEA/VOMITING 12/10/24 22:30 01/09/25 22:29 Piperacillin Sod/ Tazobactam Sod 50 ml @ 200 mls/hr STAT STAT IVPB 12/10/24 21:08 12/11/24 14:54 DC 12/10/24 21:49 200 MLS/HR Piperacillin Sod/ Tazobactam Sod (Zosyn 3.375gm+NS 50ml) 3.375 gm Q8H IVPB 12/10/24 06:00 12/11/24 00:58 DC Piperacillin Sod/ Tazobactam Sod (Zosyn 3.375gm+NS 50ml) 3.375 gm Q8H IVPB 12/11/24 06:00 12/11/24 14:54 DC 12/11/24 06:00 3.375 GM Potassium Chloride 100 ml @ 100 mls/hr AD PRN IV POTASSIUM PROTOCOL 12/10/24 22:30 01/09/25 22:29 Potassium Chloride (K-Dur/Klor-Con 20meq) 20 meq AD PRN PO POTASSIUM PROTOCOL 12/10/24 22:30 01/09/25 22:29 Potassium Chloride (KCl 10% Elixir 20meq/15ml) 20 meq AD PRN PO POTASSIUM PROTOCOL 12/10/24 22:30 01/09/25 22:29 Simvastatin (zoCOR) 10 mg HS PO 12/11/24 21:00 01/10/25 20:59 12/13/24 21:09 10 MG Tramadol HCl (UltRAM) 50 mg Q6H PRN PO MODERATE PAIN (4-6) 12/10/24 22:30 12/15/24 22:29 12/13/24 06:05 50 MG Vancomycin HCl 250 ml @ 125 mls/hr Q12H IV 12/11/24 09:00 12/11/24 11:37 DC Vancomycin HCl 250 ml @ 125 mls/hr Q12H IV 12/11/24 12:00 12/21/24 11:59 12/13/24 23:45 125 MLS/HR Vancomycin HCl (Vancomycin Protocol) 1 each AD IV 12/10/24 23:00 12/24/24 22:59 Vancomycin HCl (Vancomycin 1g/ 250ml Kit) 1 gm Q12H IV 12/10/24 22:30 12/10/24 22:36 DC DIAGNOSTICS / RADIOLOGY: [ ] ASSESSMENT: Right foot cellulitis POA Hypertension POA Diabetes type II POA Hyperlipidemia POA Anxiety disorder POA Seizure disorder POA Morbid obesity POA History of right foot cellulitis POA PLAN: Admit: Remains in ED holding transitioned to medical floor condition: Guarded Status: Full IVF: [facility] infectious disease for antibiotic stewardship Antibiotics: Vancomycin and cefepime Pending blood cultures so far negative Labs cbc, cmp, mag+ Replace electrolytes as needed as per protocol to keep potassium above 4.0 magnesium 2.0. weight management discussed: risk factors diet and exercising Wound care: elevated lower ext. offloading. continues with blistering and erythema to the dorsal aspect of the foot. PRN: MEDICATIONS Tylenol 650 mg po every 4 hrs for fever Zofran 4 mg IV every 6 hrs for n/v Hydralazine 5 mg IV every 4 hrs systolic pressure > 160 bowel regiment: lactulose 20 gm PO BID PRN constipation and daily Colace 100 mg daily Pain management: Ultram every 6 hours Supportive measures: DVT ppx, GI ppx all questions answered Supervising MD: Dr. Barrios c/d This document was generated in part using voice recognition software, occasional wrong word or sound alike substitutions may have occurred due to the inherent limitations of voice recognition software. Read the chart carefully and recognize using context, where the substitutions have occurred. Although every effort was made to edit the content, edi specialist and typing errors may occur ATTESTATION BY PHYSICIAN I have seen and examined the patient. I reviewed the documentation, medical decision making, and treatment plan as noted by the mid-level provider above. I agree with the findings and plan of care. OKSANA BARRIOS MD, ELIZABETH NP Dec 14, 2024 11:09
[2024-12-14 15:15] LABS: INR 0.95 (0.85-1.15); PROTHROMBIN TIME 10.1 SEC (9.6-11.6)
[2024-12-14 15:17] LABS: PARTIAL THROMBOPLASTIN TIME 27.3 SEC (26.3-35.5)
[2024-12-14] MEDS: clonazePAM 1MG TAB PO SCH (18:45)
[2024-12-15] VITALS (8 sets, daily range): BP systolic 105–149; BP diastolic 55–65; PULSE 60–79; RESP 16–18; TEMP 97.6–98.4; O2SAT 93–95
--- NOTE | 2024-12-15 09:41 | PN ---
[facility] PROGRESS NOTE Date of Service: Dec 15, 2024 Time of Service: 09:39 SUBJECTIVE: [ ] This is a 59-year-old female was admitted on 12/10/2024 with chief complaints of right foot swelling and redness. Patient was admitted for for cellulitis. ID we will be following for antibiotic stewardship. Patient reports pain has improved since admission continues with redness and blisters. We will wait for cultures. 12/12/2024 late entry patient continues to elevate her right foot continue with redness no fevers overnight we will continue with empiric antibiotics and recommendations from ID 12/13/2024 patient is keeping her leg elevated improving with IV antibiotics blood culture so far negative we will wait for ID final recommendation deescalate antibiotics to p.o.. 12/14/24 patient is fully awake alert oriented x3. ID continues to follow patient remains in IV antibiotics we will wait for deescalate antibiotics to p.o. continues with blistering and erythema to the dorsal aspect of the foot. Reports no pain 12/15/24 patient is seen fully awake alert oriented x3. patient is foot concerned with forming blistering ID not ready for discharge possible tomorrow. Patient continues to elevate lower extremity. REVIEW OF SYSTEMS CONSTITUTIONAL: Denies fevers, chills, or night sweats. No unintentional weight loss reported. NEUROLOGICAL: Denies headache, amaurosis fugax, motor weakness, sensory deficit, vertigo/spinning sensation, gait abnormalities, or tremors. ENT: No hearing loss, otalgia, otorrhea, rhinitis, rhinorrhea, hoarseness, or sore throat. CARDIOVASCULAR: Denies any exertional angina, dyspnea on exertion, orthopnea, paroxysmal nocturnal dyspnea, palpitations, life-threatening arrhythmias, claudication. PULMONARY: Denies any shortness of breath, cough, phlegm/sputum, hemoptysis, pleuritic chest pain. SLEEP: Denies morning headaches, daytime somnolence or napping. Denies difficulty falling asleep, staying asleep, waking from sleep. Denies knowledge of snoring. GASTROINTESTINAL: Denies any type of dysphagia to either liquids or solids. Denies nausea, vomiting, pyrosis, early satiety, abdominal pain, diarrhea, constipation, or changes in stool consistency or caliber. Denies coffee-ground emesis, hematemesis, hematochezia, or melanotic stools. GENITOURINARY: Denies frequency, urgency, nocturia, hematuria or incontinence (Storage/Irritative symptoms.) Low urinary stream, straining to void, urinary intermittency or hesitancy, splitting of the voiding stream, terminal dribbling. ENDOCRINOLOGIC: Denies polyuria, polydipsia, polyphagia or heat/cold intolerances. HEMATOLOGIC: Denies thrombophilia/previous clots, or coagulopathy/bleeding disorders. ONCOLOGIC: Denies personal history of malignancy. DERMATOLOGIC: Right foot redness up to right leg with swelling and close blister PSYCHIATRIC: Denies any suicidal or homicidal ideation. Denies hallucinations. PHYSICAL EXAM GENERAL APPEARANCE: The patient is awake, alert, and oriented, in no acute cardiopulmonary distress. NEUROLOGICAL: Cranial nerves II-XII grossly intact. Motor is 5/5 in bilateral upper and lower extremities proximal to distal. No sensory deficits. HEENT: Face is symmetric. Pupils are equal and reactive. Extraocular movements are intact. NECK: Supple. No JVD. No thyromegaly. No submental, submandibular, pre- /postauricular, occipital or supraclavicular lymphadenopathy. CHEST: Normal chest expansion. No Telemetry. LUNGS: Absence of any rales, rhonchi or any wheezing. CARDIOVASCULAR: Regular. S1 and S2 normal. No appreciable rubs, murmurs or gallops. ABDOMEN: Soft, nontender, and nondistended. There is no rebound, voluntary guarding, or rigidity. : Deferred. No Smiley. EXTREMITIES: Right foot swollen up to her right lower leg with erythema and close blister on the right foot No clubbing. Good capillary refill. SKIN: No skin breakdown. Vital Signs (last 8hr) Date Time Temp Pulse Resp B/P (MAP) Pulse Ox O2 Delivery O2 Flow Rate FiO2 12/15/24 08:00 98.2 71 18 115/58 95 Room Air 12/15/24 04:00 98.4 60 17 110/63 98 Room Air 21 LABS: Laboratory: Test 12/15/24 05:22 12/14/24 15:02 12/14/24 05:09 12/13/24 22:42 Range/Units Whole Blood Glucose 96 70-110 MG/DL Prothrombin Time 10.1 9.6-11.6 SEC Prothromb Time International Ratio 0.95 0.85-1.15 Activated Partial Thromboplast Time 27.3 26.3-35.5 SEC White Blood Count 7.2 4.8-10.8 K/uL Red Blood Count 3.74 L 4.00-5.50 MIL/uL Hemoglobin 11.1 L 12.0-16.0 g/dL Hematocrit 33.9 L 36-48 % Mean Corpuscular Volume 90.6 79-99 fL Mean Corpuscular Hemoglobin 29.7 27.0-33.0 pg Mean Corpuscular Hemoglobin Concent 32.7 32.0-36.0 g/dL Red Cell Distribution Width 12.0 11.0-15.5 % Platelet Count 209 # 130-400 K/uL Mean Platelet Volume 10.2 7.5-10.5 fL Immature Granulocyte % (Auto) 1.5 H 0-1 % Neutrophils (%) (Auto) 56.9 40.0-77.0 % Lymphocytes (%) (Auto) 30.9 21.0-51.0 % Monocytes (%) (Auto) 7.1 3.0-13.0 % Eosinophils (%) (Auto) 3.2 0.0-8.0 % Basophils (%) (Auto) 0.4 0.0-5.0 % Neutrophils # (Auto) 4.1 1.8-7.7 K/uL Lymphocytes # (Auto) 2.2 1.0-4.8 K/uL Monocytes # (Auto) 0.5 0.1-1.0 K/uL Eosinophils # (Auto) 0.23 0.00-0.70 K/uL Basophils # (Auto) 0.03 0.00-0.20 K/uL Absolute Immature Granulocyte (auto 0.11 0-1 K/uL Nucleated Red Blood Cells 0.0 0.0-0.19 % Sodium Level 141 136-145 mmol/L Potassium Level 3.9 3.5-5.1 mmol/L Chloride Level 105 101-111 mmol/L Carbon Dioxide Level 31 21-32 mmol/L Blood Urea Nitrogen 6 L 7-18 mg/dL Creatinine 0.7 0.5-1.0 mg/dL Glomerular Filtration Rate Calc 100 >90 mL/min Random Glucose 111 H 70-105 mg/dL Total Calcium 8.5 8.5-10.1 mg/dL Magnesium Level 1.90 1.80-2.40 mg/dL Total Bilirubin 0.3 0.2-1.0 mg/dL Aspartate Amino Transf (AST/SGOT) 26 10-37 U/L Alanine Aminotransferase (ALT/SGPT) 46 12-78 U/L Alkaline Phosphatase 54 50-136 U/L Total Protein 6.6 6.0-8.3 g/dL Albumin 2.8 L 3.5-5.0 g/dL Vancomycin Level Trough 15.4 # 10.0-20.0 UG/ML Current Medications Medications (Trade) Dose Ordered Sig/Eliel Route PRN Reason Start Time Stop Time Status Last Admin Dose Admin Acetaminophen (TYLenol 325MG TAB) 650 mg Q4H PRN PO MILD PAIN (1-3) 12/10/24 22:30 01/09/25 22:29 Acetaminophen (TYLenol 325MG TAB) 650 mg Q6H PRN PO TEMPERATURE GREATER THAN 101.5 12/10/24 22:30 01/09/25 22:29 Cefepime HCl (MAXipime 1 GM vial) 1 gm Q8H IVPB 12/11/24 15:00 12/13/24 22:31 DC 12/13/24 18:27 1 GM Cefepime HCl (MAXipime 1 GM vial) 1 gm Q8H IVPB 12/14/24 03:00 12/21/24 02:59 12/15/24 03:12 1 GM Clonazepam (KLONopin 1MG TAB) 1 mg BID PO 12/14/24 19:00 01/11/25 08:59 12/15/24 08:39 1 MG Clonazepam (KLONopin 1MG TAB) 1 mg DAILY PO 12/12/24 09:00 12/14/24 18:37 DC 12/14/24 08:23 1 MG Dextrose (D50w) 50 ml AD PRN IV HYPOGLYCEMIA PROTOCOL 12/10/24 22:30 01/09/25 22:29 Docusate Sodium (COLace 100MG CAP) 100 mg DAILY PO 12/12/24 09:00 01/11/25 08:59 12/15/24 08:38 100 MG Enoxaparin Sodium (Lovenox) 40 mg DAILY SQ 12/11/24 09:00 01/10/25 08:59 12/15/24 08:39 40 MG Famotidine (Pepcid 20mg Tab) 20 mg BID PO 12/11/24 09:00 01/10/25 08:59 12/15/24 08:38 20 MG Glucagon (Glucagon 1mg Kit) 1 mg AD PRN IM HYPOGLYCEMIA PROTOCOL 12/10/24 22:30 01/09/25 22:29 Insulin Human Regular (humuLIN R 100 UNIT/ML 3ML) INSULIN SLIDING SCAL... ACHS SQ 12/11/24 07:30 01/10/25 07:29 12/12/24 20:15 2 UNIT Lactulose (Constulose 20gm/ 30ml Udcup) 20 gm BID PRN PO CONSTIPATION 12/11/24 13:00 01/10/25 12:59 Lisinopril (Prinivil 2.5mg) 2.5 mg DAILY PO 12/12/24 09:00 01/11/25 08:59 12/15/24 08:39 2.5 MG Magnesium Sulfate 50 ml @ 0 mls/hr PROTOCOL PRN IV OTHER [SEE ORDER COMMENTS] 12/10/24 22:30 01/09/25 22:29 12/14/24 06:09 25 MLS/HR Ondansetron HCl (zoFRAN 4MG INJ) 4 mg Q6H PRN IV NAUSEA/VOMITING 12/10/24 22:30 01/09/25 22:29 Piperacillin Sod/ Tazobactam Sod 50 ml @ 200 mls/hr STAT STAT IVPB 12/10/24 21:08 12/11/24 14:54 DC 12/10/24 21:49 200 MLS/HR Piperacillin Sod/ Tazobactam Sod (Zosyn 3.375gm+NS 50ml) 3.375 gm Q8H IVPB 12/10/24 06:00 12/11/24 00:58 DC Piperacillin Sod/ Tazobactam Sod (Zosyn 3.375gm+NS 50ml) 3.375 gm Q8H IVPB 12/11/24 06:00 12/11/24 14:54 DC 12/11/24 06:00 3.375 GM Potassium Chloride 100 ml @ 100 mls/hr AD PRN IV POTASSIUM PROTOCOL 12/10/24 22:30 01/09/25 22:29 Potassium Chloride (K-Dur/Klor-Con 20meq) 20 meq AD PRN PO POTASSIUM PROTOCOL 12/10/24 22:30 01/09/25 22:29 Potassium Chloride (KCl 10% Elixir 20meq/15ml) 20 meq AD PRN PO POTASSIUM PROTOCOL 12/10/24 22:30 01/09/25 22:29 Simvastatin (zoCOR) 10 mg HS PO 12/11/24 21:00 01/10/25 20:59 12/14/24 20:37 10 MG Tramadol HCl (UltRAM) 50 mg Q6H PRN PO MODERATE PAIN (4-6) 12/10/24 22:30 12/15/24 22:29 12/13/24 06:05 50 MG Vancomycin HCl 250 ml @ 125 mls/hr Q12H IV 12/11/24 09:00 12/11/24 11:37 DC Vancomycin HCl 250 ml @ 125 mls/hr Q12H IV 12/11/24 12:00 12/21/24 11:59 12/14/24 23:54 125 MLS/HR Vancomycin HCl (Vancomycin Protocol) 1 each AD IV 12/10/24 23:00 12/24/24 22:59 Vancomycin HCl (Vancomycin 1g/ 250ml Kit) 1 gm Q12H IV 12/10/24 22:30 12/10/24 22:36 DC DIAGNOSTICS / RADIOLOGY: [ ] ASSESSMENT: Right foot cellulitis POA Hypertension POA Diabetes type II POA Hyperlipidemia POA Anxiety disorder POA Seizure disorder POA Morbid obesity POA History of right foot cellulitis POA PLAN: Admit: Remains in ED holding transitioned to medical floor condition: Guarded Status: Full IVF: [facility] infectious disease for antibiotic stewardship Antibiotics: Vancomycin and cefepime Pending blood cultures so far negative Labs cbc, cmp, mag+ Replace electrolytes as needed as per protocol to keep potassium above 4.0 magnesium 2.0. weight management discussed: risk factors diet and exercising Wound care: elevated lower ext. offloading. continues with blistering and erythema to the dorsal aspect of the foot. Instructed patient to avoid scratching. We will monitor right foot blistering to dorsal aspect of the foot. bowel regiment: lactulose 20 gm PO BID PRN constipation and daily Colace 100 mg daily Pain management: Ultram every 6 hours Supportive measures: DVT ppx, GI ppx all questions answered Supervising MD: Dr. Barrios c/d This document was generated in part using voice recognition software, occasional wrong word or sound alike substitutions may have occurred due to the inherent limitations of voice recognition software. Read the chart carefully and r ecognize using context, where the substitutions have occurred. Although every effort was made to edit the content, sales porter and typing errors may occur ATTESTATION BY PHYSICIAN I have seen and examined the patient. I reviewed the documentation, medical decision making, and treatment plan as noted by the mid-level provider above. I agree with the findings and plan of care. OKSANA BARRIOS MD, ELIZABETH NP Dec 15, 2024 09:41
[2024-12-15 11:32] LABS: BASOPHILS # (AUTO) 0.03 K/uL (0.00-0.20); BASOPHILS % (AUTO) 0.4 % (0.0-5.0); EOSINOPHILS # (AUTO) 0.18 K/uL (0.00-0.70); EOSINOPHILS % (AUTO) 2.5 % (0.0-8.0); HEMATOCRIT 35.3 % (36-48); IMMATURE GRANULOCYTE ABSOLUTE 0.11 K/uL (0-1); LYMPHOCYTES # (AUTO) 1.8 K/uL (1.0-4.8); LYMPHOCYTES % (AUTO) 24.7 % (21.0-51.0); MEAN CORPUSCULAR HEMOGLOBIN 29.8 pg (27.0-33.0); MEAN CORPUSCULAR HGB CONC 32.9 g/dL (32.0-36.0); MEAN CORPUSCULAR VOLUME 90.7 fL (79-99); MONOCYTES # (AUTO) 0.5 K/uL (0.1-1.0); MONOCYTES % (AUTO) 6.9 % (3.0-13.0); NEUTROPHILS # (AUTO) 4.5 K/uL (1.8-7.7); NEUTROPHILS % (AUTO) 63.9 % (40.0-77.0); PLATELET COUNT (AUTO) 261 K/uL (130-400); RED BLOOD CELL COUNT(AUTO) 3.89 MIL/uL (4.00-5.50); RED CELL DISTRIBUTION WIDTH 12.2 % (11.0-15.5); WHITE BLOOD COUNT (AUTO) 7.1 K/uL (4.8-10.8)
[2024-12-15 11:56] LABS: CREATININE 0.5 mg/dL (0.5-1.0); POTASSIUM 3.9 mmol/L (3.5-5.1)
[2024-12-15 12:11] LABS: BILIRUBIN,TOTAL 0.3 mg/dL (0.2-1.0); TOTAL PROTEIN, SERUM 6.9 g/dL (6.0-8.3)
--- NOTE | 2024-12-15 15:02 | EKG ---
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
--- NOTE | 2024-12-15 15:33 | HMCIMG ---
PORTABLE CHEST RADIOGRAPH INDICATION: CHEST PAIN COMPARISON: None FINDINGS: Heart size is normal. The pulmonary vascularity and david appear normal. No abnormal pulmonary parenchymal opacity or consolidation identified. No significant pleural effusion noted. No pneumothorax detected. IMPRESSION: No radiographic evidence for any acute cardiopulmonary process.
--- NOTE | 2024-12-15 15:35 | HMCIMG ---
ULTRASOUND VENOUS DOPPLER LEFT UPPER EXTREMITY INDICATION: Left arm pain TECHNIQUE: Routine grayscale and color and spectral Doppler ultrasound of the left upper extremity veins performed in real-time, and images subsequently made available for review. COMPARISON: None FINDINGS: Left IV catheter is present. Normal compression, vascular antegrade flow, respiratory variation and spectral waveforms identified within the left internal jugular vein, subclavian vein, axillary vein, brachial vein, and basilic vein. Echogenic intraluminal thrombus surrounds the left IV catheter at the mid cephalic vein level. Proximal cephalic vein is collapsed. IMPRESSION: Thrombus surrounding the left IV catheter at the level of the mid left cephalic vein.
[2024-12-16] VITALS (8 sets, daily range): BP systolic 99–127; BP diastolic 49–76; PULSE 60–72; RESP 16–19; TEMP 97.5–98.4; O2SAT 95–97
--- NOTE | 2024-12-16 11:30 | PN ---
[facility] PROGRESS NOTE Date of Service: Dec 16, 2024 Time of Service: 11:27 SUBJECTIVE: [ ] This is a 59-year-old female was admitted on 12/10/2024 with chief complaints of right foot swelling and redness. Patient was admitted for for cellulitis. ID we will be following for antibiotic stewardship. Patient reports pain has improved since admission continues with redness and blisters. We will wait for cultures. 12/12/2024 late entry patient continues to elevate her right foot continue with redness no fevers overnight we will continue with empiric antibiotics and recommendations from ID 12/13/2024 patient is keeping her leg elevated improving with IV antibiotics blood culture so far negative we will wait for ID final recommendation deescalate antibiotics to p.o.. 12/14/24 patient is fully awake alert oriented x3. ID continues to follow patient remains in IV antibiotics we will wait for deescalate antibiotics to p.o. continues with blistering and erythema to the dorsal aspect of the foot. Reports no pain 12/15/24 patient is seen fully awake alert oriented x3. patient is foot concerned with forming blistering ID not ready for discharge possible tomorrow. Patient continues to elevate lower extremity. 12/16/24 patient is fully awake alert oriented x3. patient is able to move right foot cellulitis significantly has improved with IV antibiotics. Waiting for Infectious Disease to deescalate IV antibiotics to p.o. versus IV outpatient setting. REVIEW OF SYSTEMS CONSTITUTIONAL: Denies fevers, chills, or night sweats. No unintentional weight loss reported. NEUROLOGICAL: Denies headache, amaurosis fugax, motor weakness, sensory deficit, vertigo/spinning sensation, gait abnormalities, or tremors. ENT: No hearing loss, otalgia, otorrhea, rhinitis, rhinorrhea, hoarseness, or sore throat. CARDIOVASCULAR: Denies any exertional angina, dyspnea on exertion, orthopnea, paroxysmal nocturnal dyspnea, palpitations, life-threatening arrhythmias, claudication. PULMONARY: Denies any shortness of breath, cough, phlegm/sputum, hemoptysis, pleuritic chest pain. SLEEP: Denies morning headaches, daytime somnolence or napping. Denies difficulty falling asleep, staying asleep, waking from sleep. Denies knowledge of snoring. GASTROINTESTINAL: Denies any type of dysphagia to either liquids or solids. Denies nausea, vomiting, pyrosis, early satiety, abdominal pain, diarrhea, constipation, or changes in stool consistency or caliber. Denies coffee-ground emesis, hematemesis, hematochezia, or melanotic stools. GENITOURINARY: Denies frequency, urgency, nocturia, hematuria or incontinence (Storage/Irritative symptoms.) Low urinary stream, straining to void, urinary intermittency or hesitancy, splitting of the voiding stream, terminal dribbling. ENDOCRINOLOGIC: Denies polyuria, polydipsia, polyphagia or heat/cold intolerances. HEMATOLOGIC: Denies thrombophilia/previous clots, or coagulopathy/bleeding disorders. ONCOLOGIC: Denies personal history of malignancy. DERMATOLOGIC: Right foot redness up to right leg with swelling and close blister PSYCHIATRIC: Denies any suicidal or homicidal ideation. Denies hallucinations. PHYSICAL EXAM GENERAL APPEARANCE: The patient is awake, alert, and oriented, in no acute cardiopulmonary distress. NEUROLOGICAL: Cranial nerves II-XII grossly intact. Motor is 5/5 in bilateral upper and lower extremities proximal to distal. No sensory deficits. HEENT: Face is symmetric. Pupils are equal and reactive. Extraocular movements are intact. NECK: Supple. No JVD. No thyromegaly. No submental, submandibular, pre- /postauricular, occipital or supraclavicular lymphadenopathy. CHEST: Normal chest expansion. No Telemetry. LUNGS: Absence of any rales, rhonchi or any wheezing. CARDIOVASCULAR: Regular. S1 and S2 normal. No appreciable rubs, murmurs or gallops. ABDOMEN: Soft, nontender, and nondistended. There is no rebound, voluntary guarding, or rigidity. : Deferred. No Smiley. EXTREMITIES: Right foot swollen up to her right lower leg with erythema and close blister on the right foot No clubbing. Good capillary refill. SKIN: No skin breakdown. Vital Signs (last 8hr) Date Time Temp Pulse Resp B/P (MAP) Pulse Ox O2 Delivery O2 Flow Rate FiO2 12/16/24 08:00 97.5 72 18 102/64 97 Room Air 12/16/24 04:00 98.1 63 17 127/72 93 Room Air 21 LABS: Laboratory: Test 12/16/24 10:45 12/15/24 14:36 12/15/24 11:27 12/14/24 15:02 Range/Units Whole Blood Glucose 149 H 70-110 MG/DL Troponin I High Sensitivity < 4 L 4-50 ng/L White Blood Count 7.1 4.8-10.8 K/uL Red Blood Count 3.89 L 4.00-5.50 MIL/uL Hemoglobin 11.6 L 12.0-16.0 g/dL Hematocrit 35.3 L 36-48 % Mean Corpuscular Volume 90.7 79-99 fL Mean Corpuscular Hemoglobin 29.8 27.0-33.0 pg Mean Corpuscular Hemoglobin Concent 32.9 32.0-36.0 g/dL Red Cell Distribution Width 12.2 11.0-15.5 % Platelet Count 261 130-400 K/uL Mean Platelet Volume 10.0 7.5-10.5 fL Immature Granulocyte % (Auto) 1.6 H 0-1 % Neutrophils (%) (Auto) 63.9 40.0-77.0 % Lymphocytes (%) (Auto) 24.7 21.0-51.0 % Monocytes (%) (Auto) 6.9 3.0-13.0 % Eosinophils (%) (Auto) 2.5 0.0-8.0 % Basophils (%) (Auto) 0.4 0.0-5.0 % Neutrophils # (Auto) 4.5 1.8-7.7 K/uL Lymphocytes # (Auto) 1.8 1.0-4.8 K/uL Monocytes # (Auto) 0.5 0.1-1.0 K/uL Eosinophils # (Auto) 0.18 0.00-0.70 K/uL Basophils # (Auto) 0.03 0.00-0.20 K/uL Absolute Immature Granulocyte (auto 0.11 0-1 K/uL Nucleated Red Blood Cells 0.0 0.0-0.19 % Sodium Level 139 136-145 mmol/L Potassium Level 3.9 3.5-5.1 mmol/L Chloride Level 103 101-111 mmol/L Carbon Dioxide Level 30 21-32 mmol/L Blood Urea Nitrogen 9 7-18 mg/dL Creatinine 0.5 0.5-1.0 mg/dL Glomerular Filtration Rate Calc 109 >90 mL/min Random Glucose 131 H 70-105 mg/dL Total Calcium 8.6 8.5-10.1 mg/dL Magnesium Level 2.00 1.80-2.40 mg/dL Total Bilirubin 0.3 0.2-1.0 mg/dL Aspartate Amino Transf (AST/SGOT) 37 10-37 U/L Alanine Aminotransferase (ALT/SGPT) 57 12-78 U/L Alkaline Phosphatase 57 50-136 U/L Total Protein 6.9 6.0-8.3 g/dL Albumin 3.0 L 3.5-5.0 g/dL Vancomycin Level Trough 12.8 10.0-20.0 UG/ML Prothrombin Time 10.1 9.6-11.6 SEC Prothromb Time International Ratio 0.95 0.85-1.15 Activated Partial Thromboplast Time 27.3 26.3-35.5 SEC Current Medications Medications (Trade) Dose Ordered Sig/Eliel Route PRN Reason Start Time Stop Time Status Last Admin Dose Admin Acetaminophen (TYLenol 325MG TAB) 650 mg Q4H PRN PO MILD PAIN (1-3) 12/10/24 22:30 01/09/25 22:29 Acetaminophen (TYLenol 325MG TAB) 650 mg Q6H PRN PO TEMPERATURE GREATER THAN 101.5 12/10/24 22:30 01/09/25 22:29 Cefepime HCl (MAXipime 1 GM vial) 1 gm Q8H IVPB 12/11/24 15:00 12/13/24 22:31 DC 12/13/24 18:27 1 GM Cefepime HCl (MAXipime 1 GM vial) 1 gm Q8H IVPB 12/14/24 03:00 12/21/24 02:59 12/16/24 03:04 1 GM Clonazepam (KLONopin 1MG TAB) 1 mg BID PO 12/14/24 19:00 01/11/25 08:59 12/16/24 08:54 1 MG Clonazepam (KLONopin 1MG TAB) 1 mg DAILY PO 12/12/24 09:00 12/14/24 18:37 DC 12/14/24 08:23 1 MG Dextrose (D50w) 50 ml AD PRN IV HYPOGLYCEMIA PROTOCOL 12/10/24 22:30 01/09/25 22:29 Docusate Sodium (COLace 100MG CAP) 100 mg DAILY PO 12/12/24 09:00 01/11/25 08:59 12/16/24 08:54 100 MG Enoxaparin Sodium (Lovenox) 40 mg DAILY SQ 12/11/24 09:00 01/10/25 08:59 12/16/24 08:54 40 MG Famotidine (Pepcid 20mg Tab) 20 mg BID PO 12/11/24 09:00 01/10/25 08:59 12/16/24 08:54 20 MG Glucagon (Glucagon 1mg Kit) 1 mg AD PRN IM HYPOGLYCEMIA PROTOCOL 12/10/24 22:30 01/09/25 22:29 Insulin Human Regular (humuLIN R 100 UNIT/ML 3ML) INSULIN SLIDING SCAL... ACHS SQ 12/11/24 07:30 01/10/25 07:29 12/15/24 20:12 2 UNIT Lactulose (Constulose 20gm/ 30ml Udcup) 20 gm BID PRN PO CONSTIPATION 12/11/24 13:00 01/10/25 12:59 Lisinopril (Prinivil 2.5mg) 2.5 mg DAILY PO 12/12/24 09:00 01/11/25 08:59 12/15/24 08:39 2.5 MG Magnesium Sulfate 50 ml @ 0 mls/hr PROTOCOL PRN IV OTHER [SEE ORDER COMMENTS] 12/10/24 22:30 01/09/25 22:29 12/14/24 06:09 25 MLS/HR Ondansetron HCl (zoFRAN 4MG INJ) 4 mg Q6H PRN IV NAUSEA/VOMITING 12/10/24 22:30 01/09/25 22:29 Piperacillin Sod/ Tazobactam Sod 50 ml @ 200 mls/hr STAT STAT IVPB 12/10/24 21:08 12/11/24 14:54 DC 12/10/24 21:49 200 MLS/HR Piperacillin Sod/ Tazobactam Sod (Zosyn 3.375gm+NS 50ml) 3.375 gm Q8H IVPB 12/10/24 06:00 12/11/24 00:58 DC Piperacillin Sod/ Tazobactam Sod (Zosyn 3.375gm+NS 50ml) 3.375 gm Q8H IVPB 12/11/24 06:00 12/11/24 14:54 DC 12/11/24 06:00 3.375 GM Potassium Chloride 100 ml @ 100 mls/hr AD PRN IV POTASSIUM PROTOCOL 12/10/24 22:30 01/09/25 22:29 Potassium Chloride (K-Dur/Klor-Con 20meq) 20 meq AD PRN PO POTASSIUM PROTOCOL 12/10/24 22:30 01/09/25 22:29 Potassium Chloride (KCl 10% Elixir 20meq/15ml) 20 meq AD PRN PO POTASSIUM PROTOCOL 12/10/24 22:30 01/09/25 22:29 Simvastatin (zoCOR) 10 mg HS PO 12/11/24 21:00 01/10/25 20:59 12/15/24 20:06 10 MG Tramadol HCl (UltRAM) 50 mg Q6H PRN PO MODERATE PAIN (4-6) 12/10/24 22:30 12/15/24 22:29 DC 12/13/24 06:05 50 MG Vancomycin HCl 250 ml @ 125 mls/hr Q12H IV 12/11/24 09:00 12/11/24 11:37 DC Vancomycin HCl 250 ml @ 125 mls/hr Q12H IV 12/11/24 12:00 12/21/24 11:59 12/15/24 12:41 125 MLS/HR Vancomycin HCl (Vancomycin Protocol) 1 each AD IV 12/10/24 23:00 12/24/24 22:59 Vancomycin HCl (Vancomycin 1g/ 250ml Kit) 1 gm Q12H IV 12/10/24 22:30 12/10/24 22:36 DC DIAGNOSTICS / RADIOLOGY: [ ] ASSESSMENT: Right foot cellulitis POA Hypertension POA Diabetes type II POA Hyperlipidemia POA Anxiety disorder POA Seizure disorder POA Morbid obesity POA History of right foot cellulitis POA left arm pain with thrombus cephalic vein removed midline 12/15/24 PLAN: Admit: Medical-surgical floor condition: Guarded Status: Full IVF: [facility] infectious disease for antibiotic stewardship Antibiotics: Vancomycin and cefepime Pending blood cultures so far negative Labs cbc, cmp, mag+ Replace electrolytes as needed as per protocol to keep potassium above 4.0 magnesium 2.0. weight management discussed: risk factors diet and exercising Wound care: elevated lower ext. offloading. continues with blistering and erythema to the dorsal aspect of the foot. Instructed patient to avoid scratching. We will monitor right foot blistering to dorsal aspect of the foot. bowel regiment: lactulose 20 gm PO BID PRN constipation and daily Colace 100 mg daily Pain management: Ultram every 6 hours Supportive measures: DVT ppx, GI ppx all questions answered Supervising MD: Dr. Yoli Thomas c/d This document was generated in part using voice recognition software, occasional wrong word or sound alike substitutions may have occurred due to the inherent limitations of voice recognition software. Read the chart carefully and recognize using context, where the substitutions have occurred. Although every effort was made to edit the content, efficiency expert and typing errors may occur ATTESTATION BY PHYSICIAN I have seen and examined the patient. I reviewed the documentation, medical decision making, and treatment plan as noted by the mid-level provider above. I agree with the findings and plan of care. SHAZIA JOHNSON MD, ELIZABETH NP Dec 16, 2024 11:30
--- NOTE | 2024-12-16 14:43 | NUR ---
DCP Patient lives alone in an apartment on first floor with a tub; [address] [place], [address]. States Shakir Martin, Son [phone]/Mi Wallace Sister [phone] are her emergency contacts. is disabled, remains independent. able to complete ADL's on her own. has a cane, walker with seat, wheelchair and uses a shower chair. Denies home health services and dialysis. [facility], [facility] provider provides home care twenty four hours per week and attends an adult daycare during the week. PCP - [facility] - [address] Upon discharge, Shakir Martin, Dannie Torres [phone] and will assist with care as needed. At this time, denies additional needs upon discharge. Addendum: 12/16/24 at 1452 by ALCON HITCHCOCK RN CM Amended: Links added.
--- NOTE | 2024-12-16 15:17 | NUR ---
[facility] Follow-up: Patient re-assessed by wound healing team. See wound assessment. Assessment and recommendations provided to primary nurse. Education provided. Addendum: 12/17/24 at 1136 by CRISTAL ISABEL RN RN/ Amended: Links added.
--- NOTE | 2024-12-16 16:35 | CONS ---
CONSULTATION NOTE Date of Service: Dec 16, 2024 Reason for Consultation: Diabetic foot ulcer affecting the dorsum of the right foot. Requesting Physician: Hospitalist team HISTORY OF PRESENT ILLNESS: [ This is a 59-year-old female a reliable historian with past medical history of diabetes, hypertension hyperlipidemia and right foot cellulitis who presents to the ED for complaints of right foot swelling and redness which started last Monday and patient states she went to [facility] and was diagnosed for UTI and was started on Macrobid and then was discharged home. Patient states they did not bother to look at her right foot reason for her visit she said so Monday she went to [facility] again for her worsening right foot swellingthat is going up to her right leg and she was started on Bactrim and was sent home.Patient states she had a similar problem in the past ,she has cellulitis on the same foot.Patient states today she has difficulty walking and pain intensity has increased and she noticed there is a blister so she decided to come to this facility. Seen and examined patient in the ER awake,alert and coherent,continue to c omplain of 8/10 pain level. Patient denies fever, nausea, vomiting, cough, chest pain, palpitation and shortness of breath. Vital signs temperature 98.6, heart rate 87, blood pressure 134/69 saturation 99% on room air. Labs: CBC unremarkable. Glucose 106 the rest of the chemistries normal. Right foot x-ray result revealed soft tissue edema. While in the ER patient was started on vancomycin and IV Zosyn. We will admit patient for further medical management. 12/16/2024. This is a 59-year-old female with history of multiple comorbidities seen at the bedside for wound care evaluation and management of the diabetic foot ulcer affecting the dorsum of the right foot the ulcer is covered with dry scab, mild redness, mild tenderness to palpation. Patient has been tolerating IV antibiotic therapy and tolerating wound care. No other concerns from the wound care standpoint at this time. REVIEW OF SYSTEMS CONSTITUTIONAL: Denies fever, chills, or fatigue. HEAD/FACE: No signs of trauma. EENT: Denies eye pain, blurred vision, double vision, or light sensitivity. RESPIRATORY: Denies shortness of breath, cough, wheezing CARDIOVASCULAR: Denies chest pain, palpitation, syncope GASTROINTESTINAL/ABDOMINAL: Denies abdominal pain, constipation, diarrhea, nausea or vomiting GENITOURINARY: Denies dysuria or hematuria. MUSCULOSKELETAL: Denies joint pain, tenderness, or trauma. INTEGUMENTARY: Swelling/ulceration on the dorsum of the right foot. NEUROLOGICAL/PSYCH: Denies anxiety, depression, heat or cold intolerance. PAST MEDICAL HISTORY: Diabetes, hypertension, hyperlipidemia, anxiety disorder, seizure disorder, right foot cellulitis PAST SURGICAL HISTORY: Hysterectomy, tubal ligation, bilateral breast biopsy PAST SOCIAL HISTORY: Patient lives alone. Patient denies alcohol tobacco and recreational drug use FAMILY HISTORY: Noncontributory Coded Allergies: No Known Drug Allergies (Unverified Allergy, Unknown, 12/10/24)] Coded Allergies: No Known Drug Allergies (Unverified Allergy, Unknown, 12/10/24) PHYSICAL EXAM EYES: Anicteric. Pupils equal and reactive. HENT: No oral thrush seen, moist Oral mucosa NECK: Supple, no JVD or thyromegaly. LUNGS: Good air entry. No rales, no rhonchi. CARDIOVASCULAR: S1, S2 regular. No murmur heard. ABDOMEN: Soft, non tender, bowel sounds present, no organomegaly CENTRAL NERVOUS SYSTEM: Awake, alert, oriented x 3. No focal deficits. SKIN: Diabetic foot ulcer affecting the dorsum of the right foot, no tenderness to palpation no periwound erythema no drainage at this time. Having scab covering the entire ulcer. LYMPHATICS: No peripheral lymphadenopathy MUSCULOSKELETAL: No joint swelling, erythema or tenderness. EXTREMITIES: No cyanosis or clubbing BACK: No deformity, no pressure ulcer. GENITOURINARY: No dysuria or hematuria Vital Sign (Last 24 Hours) 12/16/24 12/16/24 12:00 16:00 Temp 97.5 Pulse 64 Resp 18 B/P (MAP) 112/57 Pulse Ox 97 O2 Delivery Room Air O2 Flow Rate 0 FiO2 21 LABS: Laboratory: Test 12/16/24 15:14 12/15/24 14:36 12/15/24 11:27 Range/Units Whole Blood Glucose 110 70-110 MG/DL Troponin I High Sensitivity < 4 L 4-50 ng/L White Blood Count 7.1 4.8-10.8 K/uL Red Blood Count 3.89 L 4.00-5.50 MIL/uL Hemoglobin 11.6 L 12.0-16.0 g/dL Hematocrit 35.3 L 36-48 % Mean Corpuscular Volume 90.7 79-99 fL Mean Corpuscular Hemoglobin 29.8 27.0-33.0 pg Mean Corpuscular Hemoglobin Concent 32.9 32.0-36.0 g/dL Red Cell Distribution Width 12.2 11.0-15.5 % Platelet Count 261 130-400 K/uL Mean Platelet Volume 10.0 7.5-10.5 fL Immature Granulocyte % (Auto) 1.6 H 0-1 % Neutrophils (%) (Auto) 63.9 40.0-77.0 % Lymphocytes (%) (Auto) 24.7 21.0-51.0 % Monocytes (%) (Auto) 6.9 3.0-13.0 % Eosinophils (%) (Auto) 2.5 0.0-8.0 % Basophils (%) (Auto) 0.4 0.0-5.0 % Neutrophils # (Auto) 4.5 1.8-7.7 K/uL Lymphocytes # (Auto) 1.8 1.0-4.8 K/uL Monocytes # (Auto) 0.5 0.1-1.0 K/uL Eosinophils # (Auto) 0.18 0.00-0.70 K/uL Basophils # (Auto) 0.03 0.00-0.20 K/uL Absolute Immature Granulocyte (auto 0.11 0-1 K/uL Nucleated Red Blood Cells 0.0 0.0-0.19 % Sodium Level 139 136-145 mmol/L Potassium Level 3.9 3.5-5.1 mmol/L Chloride Level 103 101-111 mmol/L Carbon Dioxide Level 30 21-32 mmol/L Blood Urea Nitrogen 9 7-18 mg/dL Creatinine 0.5 0.5-1.0 mg/dL Glomerular Filtration Rate Calc 109 >90 mL/min Random Glucose 131 H 70-105 mg/dL Total Calcium 8.6 8.5-10.1 mg/dL Magnesium Level 2.00 1.80-2.40 mg/dL Total Bilirubin 0.3 0.2-1.0 mg/dL Aspartate Amino Transf (AST/SGOT) 37 10-37 U/L Alanine Aminotransferase (ALT/SGPT) 57 12-78 U/L Alkaline Phosphatase 57 50-136 U/L Total Protein 6.9 6.0-8.3 g/dL Albumin 3.0 L 3.5-5.0 g/dL Vancomycin Level Trough 12.8 10.0-20.0 UG/ML DIAGNOSTICS / RADIOLOGY: [ ] Wound care assessment: Diabetic foot ulcer on the right foot. PROBLEM LIST : Medical Problems: (1) Cellulitis of right foot ICD Codes: L03.115 - Cellulitis of right lower limb (2) Cellulitis of right lower leg ICD Codes: L03.115 - Cellulitis of right lower limb PLAN: Continue antibiotic therapy per ID specialist recommendation. Continue comorbidities per primary team. Glucose control to promote wound healing. Continue wound care per order. After discharge patient to continue wound care follow-up at [facility]. Further management per hospital course. Thank you for the consultation allowing me to participate in the care of your patient. ELOISA MENEZES MD Dec 16, 2024 16:34
--- NOTE | 2024-12-16 20:13 | PN ---
INFECTIOUS DISEASE PROGRESS NOTE Date of Service: Dec 16, 2024 SUBJECTIVE: This is a 59-year-old female patient with past medical history of diabetes mellitus and right foot cellulitis who presented to the emergency room with chief complaints of right foot swelling and redness. Patient had a low-grade fever of 99.7. A venous Doppler done on admission was negative for DVT and a foot x-ray was negative for fracture but showed soft tissue edema. Patient was seen and examined at bedside in room 320. Patient is awake, alert and oriented x3. Patient is maintaining the right foot elevated on pillow. The erythema and swelling has improved. Patient is afebrile, temperature is 98.1. Will continue on cefepime and vancomycin per pharmacy protocol. We will continue to follow patient's care. PHYSICAL EXAM EYES: Anicteric. Pupils equal and reactive. HENT: No oral thrush seen, moist Oral mucosa. NECK: Supple, no JVD or thyromegaly. LUNGS: Good air entry. No rales, no rhonchi. CARDIOVASCULAR: S1, S2 regular. No murmur heard. ABDOMEN: Soft, non tender, bowel sounds present, no organomegaly. CENTRAL NERVOUS SYSTEM: Awake, alert, oriented x 3. SKIN: No rashes, no swelling. LYMPHATICS: No peripheral lymphadenopathy MUSCULOSKELETAL: No joint swelling, erythema or tenderness. EXTREMITIES: No cyanosis or clubbing. Right foot swelling and erythema. BACK: No deformity, no pressure ulcer. GENITOURINARY: No dysuria or hematuria. Vital Sign (Last 12 Hours) 12/16/24 12/16/24 12/16/24 12/16/24 12:00 12:00 16:00 19:58 Temp 98.1 97.5 98.4 Pulse 69 64 70 Resp 18 18 18 B/P (MAP) 107/76 112/57 103/51 Pulse Ox 97 97 97 95 O2 Delivery Room Air* Room Air Room Air Room Air O2 Flow Rate 0 FiO2 21 LABS: Laboratory: Test 12/16/24 19:17 12/15/24 14:36 12/15/24 11:27 Range/Units Whole Blood Glucose 137 H 70-110 MG/DL Troponin I High Sensitivity < 4 L 4-50 ng/L White Blood Count 7.1 4.8-10.8 K/uL Red Blood Count 3.89 L 4.00-5.50 MIL/uL Hemoglobin 11.6 L 12.0-16.0 g/dL Hematocrit 35.3 L 36-48 % Mean Corpuscular Volume 90.7 79-99 fL Mean Corpuscular Hemoglobin 29.8 27.0-33.0 pg Mean Corpuscular Hemoglobin Concent 32.9 32.0-36.0 g/dL Red Cell Distribution Width 12.2 11.0-15.5 % Platelet Count 261 130-400 K/uL Mean Platelet Volume 10.0 7.5-10.5 fL Immature Granulocyte % (Auto) 1.6 H 0-1 % Neutrophils (%) (Auto) 63.9 40.0-77.0 % Lymphocytes (%) (Auto) 24.7 21.0-51.0 % Monocytes (%) (Auto) 6.9 3.0-13.0 % Eosinophils (%) (Auto) 2.5 0.0-8.0 % Basophils (%) (Auto) 0.4 0.0-5.0 % Neutrophils # (Auto) 4.5 1.8-7.7 K/uL Lymphocytes # (Auto) 1.8 1.0-4.8 K/uL Monocytes # (Auto) 0.5 0.1-1.0 K/uL Eosinophils # (Auto) 0.18 0.00-0.70 K/uL Basophils # (Auto) 0.03 0.00-0.20 K/uL Absolute Immature Granulocyte (auto 0.11 0-1 K/uL Nucleated Red Blood Cells 0.0 0.0-0.19 % Sodium Level 139 136-145 mmol/L Potassium Level 3.9 3.5-5.1 mmol/L Chloride Level 103 101-111 mmol/L Carbon Dioxide Level 30 21-32 mmol/L Blood Urea Nitrogen 9 7-18 mg/dL Creatinine 0.5 0.5-1.0 mg/dL Glomerular Filtration Rate Calc 109 >90 mL/min Random Glucose 131 H 70-105 mg/dL Total Calcium 8.6 8.5-10.1 mg/dL Magnesium Level 2.00 1.80-2.40 mg/dL Total Bilirubin 0.3 0.2-1.0 mg/dL Aspartate Amino Transf (AST/SGOT) 37 10-37 U/L Alanine Aminotransferase (ALT/SGPT) 57 12-78 U/L Alkaline Phosphatase 57 50-136 U/L Total Protein 6.9 6.0-8.3 g/dL Albumin 3.0 L 3.5-5.0 g/dL Vancomycin Level Trough 12.8 10.0-20.0 UG/ML ASSESSMENT: Right foot edema with cellulitis. Diabetes mellitus. Morbid obesity. Hypertension. History of seizure disorders. PLAN: Continue vancomycin per pharmacy protocol. Continue cefepime IV. Continue pain management. Continue monitoring glucose levels. Keep right leg elevated on pillow. Avoid using socks on the right foot. Seizure precautions. This case was reviewed and discussed with my supervising physician and the above assessment and plan was formulated and agreed upon. ATTESTATION BY PHYSICIAN I have seen and examined the patient. I reviewed the documentation, medical decision making, and treatment plan as noted by the mid-level provider above. I agree with the findings and plan of care. MARLIN MEREDITH MD, MIRTA L [facility] Dec 16, 2024 20:12
[2024-12-17 03:10] VITALS: BP 105/53; PULSE 66; RESP 18; TEMP 98.1
[2024-12-17 08:00] VITALS: BP 114/72; PULSE 67; RESP 18; TEMP 97.6; O2SAT 96
--- NOTE | 2024-12-17 08:52 | PN ---
[facility] PROGRESS NOTE Date of Service: Dec 17, 2024 Time of Service: 08:51 SUBJECTIVE: [ ] This is a 59-year-old female was admitted on 12/10/2024 with chief complaints of right foot swelling and redness. Patient was admitted for for cellulitis. ID we will be following for antibiotic stewardship. Patient reports pain has improved since admission continues with redness and blisters. We will wait for cultures. 12/12/2024 late entry patient continues to elevate her right foot continue with redness no fevers overnight we will continue with empiric antibiotics and recommendations from ID 12/13/2024 patient is keeping her leg elevated improving with IV antibiotics blood culture so far negative we will wait for ID final recommendation deescalate antibiotics to p.o.. 12/14/24 patient is fully awake alert oriented x3. ID continues to follow patient remains in IV antibiotics we will wait for deescalate antibiotics to p.o. continues with blistering and erythema to the dorsal aspect of the foot. Reports no pain 12/15/24 patient is seen fully awake alert oriented x3. patient is foot concerned with forming blistering ID not ready for discharge possible tomorrow. Patient continues to elevate lower extremity. 12/16/24 patient is fully awake alert oriented x3. patient is able to move right foot cellulitis significantly has improved with IV antibiotics. Waiting for Infectious Disease to deescalate IV antibiotics to p.o. versus IV outpatient setting. 12/17/24 Patient has improved significantly right foot cellulitis. Blister improving in size getting smaller. Patient denies any foot pain. Waiting for ID final recommendations to deescalate IV antibiotics to p.o.. 1400 ID made rounds patient we will not be discharge we will re-evaluate. REVIEW OF SYSTEMS CONSTITUTIONAL: Denies fevers, chills, or night sweats. No unintentional weight loss reported. NEUROLOGICAL: Denies headache, amaurosis fugax, motor weakness, sensory deficit, vertigo/spinning sensation, gait abnormalities, or tremors. ENT: No hearing loss, otalgia, otorrhea, rhinitis, rhinorrhea, hoarseness, or sore throat. CARDIOVASCULAR: Denies any exertional angina, dyspnea on exertion, orthopnea, paroxysmal nocturnal dyspnea, palpitations, life-threatening arrhythmias, claudication. PULMONARY: Denies any shortness of breath, cough, phlegm/sputum, hemoptysis, pleuritic chest pain. SLEEP: Denies morning headaches, daytime somnolence or napping. Denies difficulty falling asleep, staying asleep, waking from sleep. Denies knowledge of snoring. GASTROINTESTINAL: Denies any type of dysphagia to either liquids or solids. De nies nausea, vomiting, pyrosis, early satiety, abdominal pain, diarrhea, constipation, or changes in stool consistency or caliber. Denies coffee-ground emesis, hematemesis, hematochezia, or melanotic stools. GENITOURINARY: Denies frequency, urgency, nocturia, hematuria or incontinence (Storage/Irritative symptoms.) Low urinary stream, straining to void, urinary intermittency or hesitancy, splitting of the voiding stream, terminal dribbling. ENDOCRINOLOGIC: Denies polyuria, polydipsia, polyphagia or heat/cold intolerances. HEMATOLOGIC: Denies thrombophilia/previous clots, or coagulopathy/bleeding disorders. ONCOLOGIC: Denies personal history of malignancy. DERMATOLOGIC: Right foot redness up to right leg with swelling and close blister PSYCHIATRIC: Denies any suicidal or homicidal ideation. Denies hallucinations. PHYSICAL EXAM GENERAL APPEARANCE: The patient is awake, alert, and oriented, in no acute cardiopulmonary distress. NEUROLOGICAL: Cranial nerves II-XII grossly intact. Motor is 5/5 in bilateral upper and lower extremities proximal to distal. No sensory deficits. HEENT: Face is symmetric. Pupils are equal and reactive. Extraocular movements are intact. NECK: Supple. No JVD. No thyromegaly. No submental, submandibular, pre- /postauricular, occipital or supraclavicular lymphadenopathy. CHEST: Normal chest expansion. No Telemetry. LUNGS: Absence of any rales, rhonchi or any wheezing. CARDIOVASCULAR: Regular. S1 and S2 normal. No appreciable rubs, murmurs or gallops. ABDOMEN: Soft, nontender, and nondistended. There is no rebound, voluntary guarding, or rigidity. : Deferred. No Smiley. EXTREMITIES: Right foot swollen up to her right lower leg with erythema and close blister on the right foot No clubbing. Good capillary refill. SKIN: No skin breakdown. Vital Signs (last 8hr) Date Time Temp Pulse Resp B/P (MAP) Pulse Ox O2 Delivery O2 Flow Rate FiO2 12/17/24 08:00 97.5 67 18 114/72 96 Room Air 12/17/24 03:10 98.1 66 18 105/53 96 Room Air LABS: Laboratory: Test 12/17/24 05:18 12/15/24 14:36 12/15/24 11:27 Range/Units Whole Blood Glucose 100 70-110 MG/DL Troponin I High Sensitivity < 4 L 4-50 ng/L White Blood Count 7.1 4.8-10.8 K/uL Red Blood Count 3.89 L 4.00-5.50 MIL/uL Hemoglobin 11.6 L 12.0-16.0 g/dL Hematocrit 35.3 L 36-48 % Mean Corpuscular Volume 90.7 79-99 fL Mean Corpuscular Hemoglobin 29.8 27.0-33.0 pg Mean Corpuscular Hemoglobin Concent 32.9 32.0-36.0 g/dL Red Cell Distribution Width 12.2 11.0-15.5 % Platelet Count 261 130-400 K/uL Mean Platelet Volume 10.0 7.5-10.5 fL Immature Granulocyte % (Auto) 1.6 H 0-1 % Neutrophils (%) (Auto) 63.9 40.0-77.0 % Lymphocytes (%) (Auto) 24.7 21.0-51.0 % Monocytes (%) (Auto) 6.9 3.0-13.0 % Eosinophils (%) (Auto) 2.5 0.0-8.0 % Basophils (%) (Auto) 0.4 0.0-5.0 % Neutrophils # (Auto) 4.5 1.8-7.7 K/uL Lymphocytes # (Auto) 1.8 1.0-4.8 K/uL Monocytes # (Auto) 0.5 0.1-1.0 K/uL Eosinophils # (Auto) 0.18 0.00-0.70 K/uL Basophils # (Auto) 0.03 0.00-0.20 K/uL Absolute Immature Granulocyte (auto 0.11 0-1 K/uL Nucleated Red Blood Cells 0.0 0.0-0.19 % Sodium Level 139 136-145 mmol/L Potassium Level 3.9 3.5-5.1 mmol/L Chloride Level 103 101-111 mmol/L Carbon Dioxide Level 30 21-32 mmol/L Blood Urea Nitrogen 9 7-18 mg/dL Creatinine 0.5 0.5-1.0 mg/dL Glomerular Filtration Rate Calc 109 >90 mL/min Random Glucose 131 H 70-105 mg/dL Total Calcium 8.6 8.5-10.1 mg/dL Magnesium Level 2.00 1.80-2.40 mg/dL Total Bilirubin 0.3 0.2-1.0 mg/dL Aspartate Amino Transf (AST/SGOT) 37 10-37 U/L Alanine Aminotransferase (ALT/SGPT) 57 12-78 U/L Alkaline Phosphatase 57 50-136 U/L Total Protein 6.9 6.0-8.3 g/dL Albumin 3.0 L 3.5-5.0 g/dL Vancomycin Level Trough 12.8 10.0-20.0 UG/ML Current Medications Medications (Trade) Dose Ordered Sig/Eliel Route PRN Reason Start Time Stop Time Status Last Admin Dose Admin Acetaminophen (TYLenol 325MG TAB) 650 mg Q4H PRN PO MILD PAIN (1-3) 12/10/24 22:30 01/09/25 22:29 Acetaminophen (TYLenol 325MG TAB) 650 mg Q6H PRN PO TEMPERATURE GREATER THAN 101.5 12/10/24 22:30 01/09/25 22:29 Cefepime HCl (MAXipime 1 GM vial) 1 gm Q8H IVPB 12/11/24 15:00 12/13/24 22:31 DC 12/13/24 18:27 1 GM Cefepime HCl (MAXipime 1 GM vial) 1 gm Q8H IVPB 12/14/24 03:00 12/21/24 02:59 12/17/24 03:07 1 GM Clonazepam (KLONopin 1MG TAB) 1 mg BID PO 12/14/24 19:00 01/11/25 08:59 12/17/24 08:09 1 MG Clonazepam (KLONopin 1MG TAB) 1 mg DAILY PO 12/12/24 09:00 12/14/24 18:37 DC 12/14/24 08:23 1 MG Dextrose (D50w) 50 ml AD PRN IV HYPOGLYCEMIA PROTOCOL 12/10/24 22:30 01/09/25 22:29 Docusate Sodium (COLace 100MG CAP) 100 mg DAILY PO 12/12/24 09:00 01/11/25 08:59 12/17/24 08:09 100 MG Enoxaparin Sodium (Lovenox) 40 mg DAILY SQ 12/11/24 09:00 01/10/25 08:59 12/17/24 08:10 40 MG Famotidine (Pepcid 20mg Tab) 20 mg BID PO 12/11/24 09:00 01/10/25 08:59 12/17/24 08:09 20 MG Glucagon (Glucagon 1mg Kit) 1 mg AD PRN IM HYPOGLYCEMIA PROTOCOL 12/10/24 22:30 01/09/25 22:29 Insulin Human Regular (humuLIN R 100 UNIT/ML 3ML) INSULIN SLIDING SCAL... ACHS SQ 12/11/24 07:30 01/10/25 07:29 12/15/24 20:12 2 UNIT Lactulose (Constulose 20gm/ 30ml Udcup) 20 gm BID PRN PO CONSTIPATION 12/11/24 13:00 01/10/25 12:59 Lisinopril (Prinivil 2.5mg) 2.5 mg DAILY PO 12/12/24 09:00 01/11/25 08:59 12/17/24 08:09 2.5 MG Magnesium Sulfate 50 ml @ 0 mls/hr PROTOCOL PRN IV OTHER [SEE ORDER COMMENTS] 12/10/24 22:30 01/09/25 22:29 12/14/24 06:09 25 MLS/HR Ondansetron HCl (zoFRAN 4MG INJ) 4 mg Q6H PRN IV NAUSEA/VOMITING 12/10/24 22:30 01/09/25 22:29 Piperacillin Sod/ Tazobactam Sod 50 ml @ 200 mls/hr STAT STAT IVPB 12/10/24 21:08 12/11/24 14:54 DC 12/10/24 21:49 200 MLS/HR Piperacillin Sod/ Tazobactam Sod (Zosyn 3.375gm+NS 50ml) 3.375 gm Q8H IVPB 12/10/24 06:00 12/11/24 00:58 DC Piperacillin Sod/ Tazobactam Sod (Zosyn 3.375gm+NS 50ml) 3.375 gm Q8H IVPB 12/11/24 06:00 12/11/24 14:54 DC 12/11/24 06:00 3.375 GM Potassium Chloride 100 ml @ 100 mls/hr AD PRN IV POTASSIUM PROTOCOL 12/10/24 22:30 01/09/25 22:29 Potassium Chloride (K-Dur/Klor-Con 20meq) 20 meq AD PRN PO POTASSIUM PROTOCOL 12/10/24 22:30 01/09/25 22:29 Potassium Chloride (KCl 10% Elixir 20meq/15ml) 20 meq AD PRN PO POTASSIUM PROTOCOL 12/10/24 22:30 01/09/25 22:29 Simvastatin (zoCOR) 10 mg HS PO 12/11/24 21:00 01/10/25 20:59 12/16/24 19:43 10 MG Tramadol HCl (UltRAM) 50 mg Q6H PRN PO MODERATE PAIN (4-6) 12/10/24 22:30 12/15/24 22:29 DC 12/13/24 06:05 50 MG Vancomycin HCl 250 ml @ 125 mls/hr Q12H IV 12/11/24 09:00 12/11/24 11:37 DC Vancomycin HCl 250 ml @ 125 mls/hr Q12H IV 12/11/24 12:00 12/21/24 11:59 12/17/24 00:33 125 MLS/HR Vancomycin HCl (Vancomycin Protocol) 1 each AD IV 12/10/24 23:00 12/24/24 22:59 Vancomycin HCl (Vancomycin 1g/ 250ml Kit) 1 gm Q12H IV 12/10/24 22:30 12/10/24 22:36 DC DIAGNOSTICS / RADIOLOGY: [ ] ASSESSMENT: Right foot cellulitis POA Hypertension POA Diabetes type II POA Hyperlipidemia POA Anxiety disorder POA Seizure disorder POA Morbid obesity POA History of right foot cellulitis POA left arm pain with thrombus cephalic vein removed midline 12/15/24 PLAN: Admit: Medical-surgical floor condition: Guarded Status: Full IVF: [facility] infectious disease for antibiotic stewardship Antibiotics: Vancomycin and cefepime culture so far negative Labs cbc, cmp, mag+ Replace electrolytes as needed as per protocol to keep potassium above 4.0 magnesium 2.0. weight management discussed: risk factors diet and exercising Wound care: elevated lower ext. offloading. continues with blistering and erythema to the dorsal aspect of the foot. Instructed patient to avoid scratching. We will monitor right foot blistering to dorsal aspect of the foot. bowel regiment: lactulose 20 gm PO BID PRN constipation and daily Colace 100 mg daily Pain management: Ultram every 6 hours Supportive measures: DVT ppx, GI ppx all questions answered Supervising MD: Dr. Yoli Thomas c/d This document was generated in part using voice recognition software, occasional wrong word or sound alike substitutions may have occurred due to the inherent limitations of voice recognition software. Read the chart carefully and recognize using context, where the substitutions have occurred. Although every effort was made to edit the content, interior decorator painting and typing errors may occur ATTESTATION BY PHYSICIAN I have seen and examined the patient. I reviewed the documentation, medical decision making, and treatment plan as noted by the mid-level provider above. I agree with the findings and plan of care. SHAZIA JOHNSON MD, ELIZABETH NP Dec 17, 2024 08:52
[2024-12-17 11:43] VITALS: BP 105/67; PULSE 96; RESP 18; TEMP 98.5
[2024-12-17 15:58] VITALS: BP 112/54; PULSE 66; RESP 18; TEMP 97.4
[2024-12-17 20:00] VITALS: BP 96/48; PULSE 72; RESP 20; TEMP 98; O2SAT 93
--- NOTE | 2024-12-17 22:48 | PN ---
INFECTIOUS DISEASE PROGRESS NOTE Date of Service: Dec 17, 2024 SUBJECTIVE: This is a 59-year-old female patient with past medical history of diabetes mellitus and right foot cellulitis who presented to the emergency room with chief complaints of right foot swelling and redness. Patient had a low-grade fever of 99.7. A venous Doppler done on admission was negative for DVT and a foot x-ray was negative for fracture but showed soft tissue edema. Patient was seen and examined at bedside in room 320. Patient is awake, alert and oriented x3. Patient is afebrile, temperature is 98.4. Will continue on cefepime and vancomycin per pharmacy protocol. Patient's right foot cellulitis and edema continues to improve. We will re- evaluate patient tomorrow. PHYSICAL EXAM EYES: Anicteric. Pupils equal and reactive. HENT: No oral thrush seen, moist Oral mucosa. NECK: Supple, no JVD or thyromegaly. LUNGS: Good air entry. No rales, no rhonchi. CARDIOVASCULAR: S1, S2 regular. No murmur heard. ABDOMEN: Soft, non tender, bowel sounds present, no organomegaly. CENTRAL NERVOUS SYSTEM: Awake, alert, oriented x 3. SKIN: No rashes, no swelling. LYMPHATICS: No peripheral lymphadenopathy MUSCULOSKELETAL: No joint swelling, erythema or tenderness. EXTREMITIES: No cyanosis or clubbing. Right foot swelling and erythema. BACK: No deformity, no pressure ulcer. GENITOURINARY: No dysuria or hematuria. Vital Sign (Last 12 Hours) 12/17/24 12/17/24 12/17/24 11:43 15:58 20:00 Temp 98.4 97.3 98.1 Pulse 96 66 72 Resp 18 18 20 B/P (MAP) 105/67 112/54 96/48 Pulse Ox 96 96 98 O2 Delivery Room Air Room Air Room Air Intake & Output (last 24hrs) 12/16/24 12/16/24 12/17/24 15:00 23:00 07:00 Intake Total 480 ml 240 ml 300.0 ml Balance 480 ml 240 ml 300.0 ml LABS: Laboratory: Test 12/17/24 19:28 12/17/24 10:50 Range/Units Whole Blood Glucose 220 #H 70-110 MG/DL Vancomycin Level Trough 12.6 10.0-20.0 UG/ML ASSESSMENT: Right foot edema with cellulitis. Diabetes mellitus. Morbid obesity. Hypertension. History of seizure disorders. PLAN: Continue vancomycin per pharmacy protocol. Continue cefepime IV. Continue pain management. Continue monitoring glucose levels. Keep right leg elevated on pillow. Avoid using socks on the right foot. Seizure precautions. This case was reviewed and discussed with my supervising physician and the above assessment and plan was formulated and agreed upon. ATTESTATION BY PHYSICIAN I have seen and examined the patient. I reviewed the documentation, medical decision making, and treatment plan as noted by the mid-level provider above. I agree with the findings and plan of care. MARLIN MEREDITH MD, MIRTA L [facility] Dec 17, 2024 22:48
[2024-12-18] VITALS: BP 115/55; PULSE 68; RESP 17; TEMP 97.9
[2024-12-18 04:00] VITALS: BP 123/51; PULSE 71; RESP 18; TEMP 98
[2024-12-18 08:03] VITALS: BP 93/51; PULSE 68; RESP 18; TEMP 98.1
[2024-12-18 08:21] VITALS: O2SAT 98
--- NOTE | 2024-12-18 08:25 | NUR ---
HELD AM DOSE OF LISINOPRIL DUE TO BLOOD PRESSURE BEING 93/51
[2024-12-18 08:58] LABS: BASOPHILS # (AUTO) 0.03 K/uL (0.00-0.20); BASOPHILS % (AUTO) 0.4 % (0.0-5.0); EOSINOPHILS # (AUTO) 0.13 K/uL (0.00-0.70); EOSINOPHILS % (AUTO) 1.8 % (0.0-8.0); HEMATOCRIT 37.3 % (36-48); IMMATURE GRANULOCYTE ABSOLUTE 0.12 K/uL (0-1); LYMPHOCYTES # (AUTO) 1.6 K/uL (1.0-4.8); LYMPHOCYTES % (AUTO) 22.1 % (21.0-51.0); MEAN CORPUSCULAR HEMOGLOBIN 29.7 pg (27.0-33.0); MEAN CORPUSCULAR HGB CONC 32.4 g/dL (32.0-36.0); MEAN CORPUSCULAR VOLUME 91.6 fL (79-99); MONOCYTES # (AUTO) 0.4 K/uL (0.1-1.0); MONOCYTES % (AUTO) 5.7 % (3.0-13.0); NEUTROPHILS # (AUTO) 5.1 K/uL (1.8-7.7); NEUTROPHILS % (AUTO) 68.4 % (40.0-77.0); PLATELET COUNT (AUTO) 245 K/uL (130-400); RED BLOOD CELL COUNT(AUTO) 4.07 MIL/uL (4.00-5.50); RED CELL DISTRIBUTION WIDTH 12.2 % (11.0-15.5); WHITE BLOOD COUNT (AUTO) 7.4 K/uL (4.8-10.8)
[2024-12-18 09:06] LABS: CREATININE 0.6 mg/dL (0.5-1.0); POTASSIUM 3.8 mmol/L (3.5-5.1)
[2024-12-18 09:11] LABS: ALBUMIN 3.2 g/dL (3.5-5.0); BILIRUBIN,TOTAL 0.4 mg/dL (0.2-1.0); MAGNESIUM 1.9 mg/dL (1.80-2.40); TOTAL PROTEIN, SERUM 6.9 g/dL (6.0-8.3)
[2024-12-18 11:10] VITALS: BP 123/52; PULSE 72; RESP 18; TEMP 98.1
--- NOTE | 2024-12-18 11:46 | DS ---
Discharge Summary Hospital Course Summary: This is a 59-year-old female was admitted on 12/10/2024 with chief complaints of right foot swelling and redness. Patient was admitted for for cellulitis. ID we will be following for antibiotic stewardship. Patient reports pain has improved since admission continues with redness and blisters. We will wait for cultures. 12/12/2024 late entry patient continues to elevate her right foot continue with redness no fevers overnight we will continue with empiric antibiotics and recommendations from ID 12/13/2024 patient is keeping her leg elevated improving with IV antibiotics blood culture so far negative we will wait for ID final recommendation deescalate antibiotics to p.o.. 12/14/24 patient is fully awake alert oriented x3. ID continues to follow patient remains in IV antibiotics we will wait for deescalate antibiotics to p.o. continues with blistering and erythema to the dorsal aspect of the foot. Reports no pain 12/15/24 patient is seen fully awake alert oriented x3. patient is foot concerned with forming blistering ID not ready for discharge possible tomorrow. Patient continues to elevate lower extremity. 12/16/24 patient is fully awake alert oriented x3. patient is able to move right foot cellulitis significantly has improved with IV antibiotics. Waiting for Infectious Disease to deescalate IV antibiotics to p.o. versus IV outpatient setting. 12/17/24 Patient has improved significantly right foot cellulitis. Blister impr oving in size getting smaller. Patient denies any foot pain. Waiting for ID final recommendations to deescalate IV antibiotics to p.o.. 1400 ID made rounds patient we will not be discharge we will re-evaluate. 12/18/2024. Patient is was cleared by Infectious Disease patient will be discharged home with Cephalexin head sling and doxycycline for 10 days prescription was written per Infectious Disease. On admission patient's DVT was negative. Fractures was also was negative. Blood cultures were negative. Patient was instructed to avoid scratching foot. Patient is clinically stable for discharge. [employer] Practitioner(s): REASON: Right lower swelling and erythema ORDERING PHYSICIAN: ZARIA NEVILLE PROCEDURE: VENOUS UNI - US VENOUS DOPPLER UNILATERAL US VENOUS DOPPLER UNILATERAL HISTORY: Right lower extremity swelling COMPARISON: None TECHNIQUE: Right lower extremity venous Doppler ultrasound study was performed. FINDINGS: The right common femoral, femoral, popliteal, and posterior tibial veins are visualized. Normal flow with augmentation and compressibilities are demonstrated. Right greater saphenous vein is patent. IMPRESSION: 1. No evidence of deep venous thrombosis is seen. REASON: cellulitis ORDERING PHYSICIAN: RAKESH MCNEIL SHOP COORDINATOR PROCEDURE: FT 3VW RT - FOOT COMP 3+VWS RT FOOT COMP 3+VWS RT CLINICAL HISTORY: cellulitis COMPARISON: None TECHNIQUE: AP lateral and oblique images were obtained. FINDINGS: No obvious fracture or dislocation. No joint effusion. The soft tissues appear edematous. No radiopaque foreign bodies. IMPRESSION: Soft tissue edema. Procedure(s): REASON: Right lower swelling and erythema ORDERING PHYSICIAN: ZARIA NEVILLE SHOP COORDINATOR PROCEDURE: VENOUS UNI - US VENOUS DOPPLER UNILATERAL US VENOUS DOPPLER UNILATERAL HISTORY: Right lower extremity swelling COMPARISON: None TECHNIQUE: Right lower extremity venous Doppler ultrasound study was performed. FINDINGS: The right common femoral, femoral, popliteal, and posterior tibial veins are visualized. Normal flow with augmentation and compressibilities are demonstrated. Right greater saphenous vein is patent. IMPRESSION: 1. No evidence of deep venous thrombosis is seen. REASON: cellulitis ORDERING PHYSICIAN: RAKESH MCNEIL SHOP COORDINATOR PROCEDURE: FT 3VW RT - FOOT COMP 3+VWS RT FOOT COMP 3+VWS RT CLINICAL HISTORY: cellulitis COMPARISON: None TECHNIQUE: AP lateral and oblique images were obtained. FINDINGS: No obvious fracture or dislocation. No joint effusion. The soft tissues appear edematous. No radiopaque foreign bodies. IMPRESSION: Soft tissue edema. Assessment/Plan: discharged dx's; Right foot cellulitis POA improving Hypertension POA Diabetes type II POA Hyperlipidemia POA Anxiety disorder POA Seizure disorder POA Morbid obesity POA History of right foot cellulitis POA left arm pain with thrombus cephalic vein removed midline 12/15/24 PLAN: ADMISSION DATE: 12/10/2024 DISCHARGE DATE: 12/18/2024 DISPOSITION: Home CONDITION: Stable HOUSECALLS NURSE(S): Infectious disease FOLLOW UP APPOINTMENT(S): PCP 2-3 days PROCEDURES: None IMAGING (S) report attached to summary : MICROBIOLOGY: report attached to summary; ACTIVITY: Ad peter HOME MEDICATIONS remain the same CHANGES ON HOME MEDICATIONS none NEW MEDICATIONS doxycycline 100 mg p.o. b.i.d. and cephalexin as directed both for 10 days. TEACHING: Instructed patient to complete full cycle of antibiotics. Emergency instructions: The patient was instructed to present to the nearest Emergency Department or call 911 should their symptoms return or worsen. Home Medications: Reported Medications Clonazepam (Clonazepam) 1 Mg Tab.rapdis, 1 TAB PO BID for 30 Days, #60 TAB 0 Refills 12/13/24 Simvastatin (Simvastatin) 10 Mg Tablet, 10 MG PO HS, TAB 12/11/24 Lisinopril (Lisinopril) 2.5 Mg Tablet, 2.5 MG PO DAILY, TAB 12/11/24 Metformin HCl (Metformin HCl) 500 Mg Tablet, 500 MG PO BID, TAB 12/11/24 Continued Medications: Clonazepam (Clonazepam) 1 Mg Tab.rapdis 1 TAB PO BID for 30 Days, #60 TAB 0 Refills Lisinopril (Lisinopril) 2.5 Mg Tablet 2.5 MG PO DAILY, TAB Metformin HCl (Metformin HCl) 500 Mg Tablet 500 MG PO BID, TAB Simvastatin (Simvastatin) 10 Mg Tablet 10 MG PO HS, TAB Time spent arranging discharge: 31-60 minutes ATTESTATION BY PHYSICIAN I have seen and examined the patient. I reviewed the documentation, medical decision making, and treatment plan as noted by the mid-level provider above. I agree with the findings and plan of care. SHAZIA JOHNSON MD, ELIZABETH NP Dec 18, 2024 11:46
--- NOTE | 2024-12-18 14:32 | NUR ---
Nutritional Note: Pt. denied n/v, NKFA, problems chewing/swallowing. Pt reported last BM 12/18/24, PCP visit 3 mo. ago, MVI qd, good appetite, UBW of 280lbs, recent wt loss was unknown due to being on Ozempic for 1 year, 30 min walks qd, 100% PO intake, and no concerns with the food. Pt reported last A1C 3 mo. ago was 6.0, previously received MNT for T2DM before and portions her food. Pt reported typical diet at home of high CHO. Lab values WNL, pending A1C order to assess BG. Recommendations - Continue Consistent Carb 60 g (1500 1700) + HH diet - Consider MVI QD - Monitor wts - Reweigh as able - Order A1C to assess BG -Order lipid panel per hx of HTN and HLD - Order Vit D, vit b-12 labs to rule out deficiencies - Monitor goals of care RD to follow + available for consult per protocol Dietetic Student, Muriel Persaud Addendum: 12/18/24 at [address] Amended: Links added.
[2024-12-18 16:03] LABS: CHOLESTEROL 141 mg/dL (<200); HDL CHOLESTEROL 41 mg/dL (35-85); LDL DIRECT 88 mg/dL (0-99); TRIGLYCERIDES 108 mg/dL (30-200)
[2024-12-18 16:33] VITALS: BP 106/64; PULSE 71; RESP 18; TEMP 98.1
--- NOTE | 2024-12-18 18:30 | NUR ---
DISCHARGE MIDLINE DISCONTINUED PATIENT RECEIVED DISCHARGE EDUCATION, DISCHARGE INSTRUCTIONS, AND NEW PRESCRIPTIONS PATIENT IS AWARE TO FOLLOW UP WITH [facility] IN 1 WEEK PATIENT IS AWARE TO FOLLOW UP WITH PCP IN 2-3 DAYS PATIENT IS AWARE TO TAKE NEW PRESCRIPTIONS TO PREFERRED PHARMACY TO HAVE THEM FILLED ALL QUESTIONS ANSWERED.
--- NOTE | 2024-12-18 22:24 | PN ---
INFECTIOUS DISEASE PROGRESS NOTE Date of Service: Dec 18, 2024 SUBJECTIVE: This is a 59-year-old female patient with past medical history of diabetes mellitus and right foot cellulitis who presented to the emergency room with chief complaints of right foot swelling and redness. Patient had a low-grade fever of 99.7. A venous Doppler done on admission was negative for DVT and a foot x-ray was negative for fracture but showed soft tissue edema. Patient was seen and examined at bedside in room 320. Patient is awake, alert and oriented x3. Patient is afebrile, temperature is 98.1 and the WBC is 7.4. From Infectious Disease standpoint patient can be discharged to home on cephalexin and doxycycline for 10 days. Prescription was written. PHYSICAL EXAM EYES: Anicteric. Pupils equal and reactive. HENT: No oral thrush seen, moist Oral mucosa. NECK: Supple, no JVD or thyromegaly. LUNGS: Good air entry. No rales, no rhonchi. CARDIOVASCULAR: S1, S2 regular. No murmur heard. ABDOMEN: Soft, non tender, bowel sounds present, no organomegaly. CENTRAL NERVOUS SYSTEM: Awake, alert, oriented x 3. SKIN: No rashes, no swelling. LYMPHATICS: No peripheral lymphadenopathy MUSCULOSKELETAL: No joint swelling, erythema or tenderness. EXTREMITIES: No cyanosis or clubbing. Right foot swelling and erythema. BACK: No deformity, no pressure ulcer. GENITOURINARY: No dysuria or hematuria. Vital Sign (Last 12 Hours) 12/18/24 12/18/24 11:10 16:33 Temp 98.1 98.1 Pulse 72 71 Resp 18 18 B/P (MAP) 123/52 106/64 Pulse Ox 98 98 O2 Delivery Room Air Room Air Intake & Output (last 24hrs) 12/17/24 12/17/24 12/18/24 15:00 23:00 07:00 Intake Total 240 ml 240 ml 540.0 ml Balance 240 ml 240 ml 540.0 ml LABS: Laboratory: Test 12/18/24 16:18 12/18/24 08:42 12/17/24 10:50 Range/Units Whole Blood Glucose 108 70-110 MG/DL White Blood Count 7.4 4.8-10.8 K/uL Red Blood Count 4.07 4.00-5.50 MIL/uL Hemoglobin 12.1 12.0-16.0 g/dL Hematocrit 37.3 36-48 % Mean Corpuscular Volume 91.6 79-99 fL Mean Corpuscular Hemoglobin 29.7 27.0-33.0 pg Mean Corpuscular Hemoglobin Concent 32.4 32.0-36.0 g/dL Red Cell Distribution Width 12.2 11.0-15.5 % Platelet Count 245 130-400 K/uL Mean Platelet Volume 10.1 7.5-10.5 fL Immature Granulocyte % (Auto) 1.6 H 0-1 % Neutrophils (%) (Auto) 68.4 40.0-77.0 % Lymphocytes (%) (Auto) 22.1 21.0-51.0 % Monocytes (%) (Auto) 5.7 3.0-13.0 % Eosinophils (%) (Auto) 1.8 0.0-8.0 % Basophils (%) (Auto) 0.4 0.0-5.0 % Neutrophils # (Auto) 5.1 1.8-7.7 K/uL Lymphocytes # (Auto) 1.6 1.0-4.8 K/uL Monocytes # (Auto) 0.4 0.1-1.0 K/uL Eosinophils # (Auto) 0.13 0.00-0.70 K/uL Basophils # (Auto) 0.03 0.00-0.20 K/uL Absolute Immature Granulocyte (auto 0.12 0-1 K/uL Nucleated Red Blood Cells 0.0 0.0-0.19 % Sodium Level 138 136-145 mmol/L Potassium Level 3.8 3.5-5.1 mmol/L Chloride Level 104 101-111 mmol/L Carbon Dioxide Level 30 21-32 mmol/L Blood Urea Nitrogen 8 7-18 mg/dL Creatinine 0.6 0.5-1.0 mg/dL Glomerular Filtration Rate Calc 104 >90 mL/min Random Glucose 131 H 70-105 mg/dL Hemoglobin A1c 6.0 4.0-6.0 % Estimated Average Glucose (eAG) 126 70-126 mg/dL Total Calcium 8.9 8.5-10.1 mg/dL Magnesium Level 1.90 1.80-2.40 mg/dL Total Bilirubin 0.4 0.2-1.0 mg/dL Aspartate Amino Transf (AST/SGOT) 24 10-37 U/L Alanine Aminotransferase (ALT/SGPT) 49 12-78 U/L Alkaline Phosphatase 62 50-136 U/L Total Protein 6.9 6.0-8.3 g/dL Albumin 3.2 L 3.5-5.0 g/dL Triglycerides Level 108 30-200 mg/dL Cholesterol Level 141 <200 mg/dL LDL Cholesterol 88 0-99 mg/dL HDL Cholesterol 41 35-85 mg/dL Vitamin B12 Level 1088 H 193-986 pg/mL Vancomycin Level Trough 12.6 10.0-20.0 UG/ML ASSESSMENT: Right foot edema with cellulitis. Diabetes mellitus. Morbid obesity. Hypertension. History of seizure disorders. PLAN: From Infectious Disease standpoint patient can be discharged to home on ceph alexin and doxycycline for 10 days. Prescription was written. This case was reviewed and discussed with my supervising physician and the above assessment and plan was formulated and agreed upon. ATTESTATION BY PHYSICIAN I have seen and examined the patient. I reviewed the documentation, medical decision making, and treatment plan as noted by the mid-level provider above. I agree with the findings and plan of care. MARLIN MEREDITH MD, [facility] Dec 18, 2024 22:24
== END 2024-12-18 19:00 | disposition home or self-care (01) | DRG 383 ==
LOC: EDH 18:26 → EDHIP 18:27 → 3CH 12-11 20:27
PROVIDERS: ADMIT Internal Medicine; ATTEND Internal Medicine
PROC: 05HC33Z Insertion of Infusion Device into Left Basilic Vein, Percutaneous Approach (ICD-10-PCS; 2024-12-14)
PROC: B54NZZA Ultrasonography of Left Upper Extremity Veins, Guidance (ICD-10-PCS; 2024-12-14)
PROC: 05HD33Z Insertion of Infusion Device into Right Cephalic Vein, Percutaneous Approach (ICD-10-PCS; principal; 2024-12-15)
PROC: B54MZZA Ultrasonography of Right Upper Extremity Veins, Guidance (ICD-10-PCS; 2024-12-15)
DX: L03.115 Cellulitis of right lower limb (principal); E11.9 Type 2 diabetes mellitus without complications; K21.9 Gastro-esophageal reflux disease without esophagitis; G40.909 Epilepsy, unspecified, not intractable, without status epilepticus; Z60.2 Problems related to living alone; I10 Essential (primary) hypertension; Z68.41 Body mass index [BMI] 40.0-44.9, adult; E78.5 Hyperlipidemia, unspecified; E78.00 Pure hypercholesterolemia, unspecified; F41.9 Anxiety disorder, unspecified; E66.01 Morbid (severe) obesity due to excess calories; Z83.3 Family history of diabetes mellitus; Z90.710 Acquired absence of both cervix and uterus
CPT/HCPCS: 36415; 71045; 73630; 80048; 80053; 80061; 80202; 82306; 82607; 82948; 83036; 83605; 83735; 84484; 85025; 85610; 85651; 85730; 93005; 93971; 96365; 99285; G0378; J0692; J1650; J1815; J2543; J3370; J3475; J7070

== ENCOUNTER → 2024-12-31 | Outpatient (CLI) | payer MEDICAID ==
[~2024-12-31] MED LIST: CLON1TAB23 PO; LIDOCAINE HCL 4% LTA SOL 4 ML VIAL TP ONE; LISI2.5T13 PO; METF-444 PO; SIMV10TA97 PO
== END | disposition home or self-care (01) ==
LOC: WHH 08:16
PROVIDERS: ATTEND Family Medicine
DX: E11.621 Type 2 diabetes mellitus with foot ulcer (principal); L97.512 Non-pressure chronic ulcer of other part of right foot with fat layer exposed; I10 Essential (primary) hypertension; J45.909 Unspecified asthma, uncomplicated; K21.9 Gastro-esophageal reflux disease without esophagitis; E66.9 Obesity, unspecified; E78.00 Pure hypercholesterolemia, unspecified; M79.89 Other specified soft tissue disorders; M19.90 Unspecified osteoarthritis, unspecified site; F41.9 Anxiety disorder, unspecified; F32.A Depression, unspecified; Z68.41 Body mass index [BMI] 40.0-44.9, adult; Z90.710 Acquired absence of both cervix and uterus; Z90.49 Acquired absence of other specified parts of digestive tract
CPT/HCPCS: 11042; A4450

== ENCOUNTER → 2025-01-07 | Outpatient (CLI) | payer MEDICAID ==
[~2025-01-07] MED LIST changes: -LIDOCAINE HCL 4% LTA SOL 4 ML VIAL TP ONE
== END | disposition home or self-care (01) ==
LOC: WHH 08:18
PROVIDERS: ATTEND Family Medicine
DX: E11.621 Type 2 diabetes mellitus with foot ulcer (principal); L97.512 Non-pressure chronic ulcer of other part of right foot with fat layer exposed; I10 Essential (primary) hypertension; J45.909 Unspecified asthma, uncomplicated; K21.9 Gastro-esophageal reflux disease without esophagitis; E66.9 Obesity, unspecified; E78.00 Pure hypercholesterolemia, unspecified; M79.89 Other specified soft tissue disorders; M19.90 Unspecified osteoarthritis, unspecified site; F41.9 Anxiety disorder, unspecified; F32.A Depression, unspecified; Z68.41 Body mass index [BMI] 40.0-44.9, adult; Z90.710 Acquired absence of both cervix and uterus; Z90.49 Acquired absence of other specified parts of digestive tract
CPT/HCPCS: 99214